=== PATIENT | male | born 1940 | race Caucasian/White ===

== ENCOUNTER → 2023-07-15 15:40 | Outpatient (REF) | payer MEDICARE, SELFPAY ==
[2023-07-15 16:15] LABS: % Basophils 0.5 % (0-2); % Eosinophils 0.8 % (0-6); % Immature Granulocytes 0.3 % (0-0.5); % Monocytes 5.1 % (1.7-9.3); % Neutrophils 44.3 % (42.2-75.2); Absolute Basophils 0.1 10^3/uL (0-0.2); Absolute Eosinophils 0.1 10^3/uL (0-0.7); Absolute Immature Granulocytes 0.1 10^3/uL (0-0.05); Absolute Lymphocytes 7.2 10^3/uL (1.2-3.4); Absolute Monocytes 0.8 10^3/uL (0.1-0.6); Absolute Neutrophils 6.5 10^3/uL (1.4-6.5); Hematocrit 37.1 % (39.0-52.0); Hemoglobin 12.8 g/dL (13.0-18.0); Mean Corp Hgb Conc. 34.5 g/dL (33.0-37.0); Mean Corpuscular Hgb 31.5 pg (27.0-31.0); Mean Corpuscular Volume 91.4 fL (80.0-94.0); Mean Platelet Volume 10.2 fL (7.4-10.4); Nucleated Red Blood Cells % 0 % (-); Platelet Count 233 10^3/uL (130-400); Red Blood Cell Count 4.06 10^6/uL (4.70-6.10); Red Cell Dist. Width 12.6 % (11.5-14.5); White Blood Cell Count 14.6 10^3/uL (4.8-10.8)
[2023-07-19 12:42] LABS: Albumin 4.09 g/dL (3.75-5.01); Alpha 1 Globulin 0.24 g/dL (0.19-0.46); Alpha 2 Globulin 0.67 g/dL (0.48-1.05); Free Kappa Light Chains,Quant 34.57 mg/L (3.30-19.40); Free Lambda Light Chains,Quant 15.57 mg/L (5.71-26.30); IgA 188 mg/dL (68-408); IgG 961 mg/dL (768-1632); IgM 38 mg/dL (35-263); Immunofixation Electrophoresis IFE Done; Kappa/Lambda Fr Light Ratio 2.22 (0.26-1.65); Total Protein-Electrophoresis 6.6 g/dL (6.3-8.2)
== END ==
LOC: REG 15:40
PROVIDERS: ATTENDING PHYSICIAN Internal Medicine Hematology & Oncology; FAMILY PHYSICIAN Internal Medicine
DX: C91.10 Chronic lymphocytic leukemia of B-cell type not having achieved remission (principal)
CPT/HCPCS: 36415; 82784; 83521; 84155; 84165; 85025; 86334

== ENCOUNTER → 2023-08-25 06:23 | Day surgery (SDC) | payer MEDICARE, SELFPAY ==
[2023-08-25 08:04] LABS: Glucose - Point of Care 105 mg/dl (70-99)
== END ==
LOC: GI 06:23
PROVIDERS: ATTENDING PHYSICIAN Internal Medicine Gastroenterology
DX: R13.10 Dysphagia, unspecified (principal); K44.9 Diaphragmatic hernia without obstruction or gangrene; Q39.9 Congenital malformation of esophagus, unspecified; K31.7 Polyp of stomach and duodenum; K31.89 Other diseases of stomach and duodenum; C85.99 Non-Hodgkin lymphoma, unspecified, extranodal and solid organ sites; K29.50 Unspecified chronic gastritis without bleeding; K20.80 Other esophagitis without bleeding
CPT/HCPCS: 43239; 88305; 82962; 88341; 88342

== ENCOUNTER → 2023-09-16 07:42 | Outpatient (REF) | payer MEDICARE, SELFPAY ==
[2023-09-16 08:49] LABS: % Basophils 0.5 % (0-2); % Eosinophils 0.9 % (0-6); % Immature Granulocytes 0.3 % (0-0.5); % Lymphocytes 53.5 % (20.5-51.1); % Monocytes 5.2 % (1.7-9.3); % Neutrophils 39.6 % (42.2-75.2); Absolute Basophils 0.1 10^3/uL (0-0.2); Absolute Eosinophils 0.1 10^3/uL (0-0.7); Absolute Monocytes 0.8 10^3/uL (0.1-0.6); Absolute Neutrophils 5.9 10^3/uL (1.4-6.5); Hematocrit 39.2 % (39.0-52.0); Hemoglobin 13.4 g/dL (13.0-18.0); Mean Corp Hgb Conc. 34.2 g/dL (33.0-37.0); Mean Corpuscular Hgb 30.9 pg (27.0-31.0); Mean Corpuscular Volume 90.5 fL (80.0-94.0); Mean Platelet Volume 10.4 fL (7.4-10.4); Nucleated Red Blood Cells % 0 % (-); Platelet Count 219 10^3/uL (130-400); Red Blood Cell Count 4.33 10^6/uL (4.70-6.10); Red Cell Dist. Width 12.5 % (11.5-14.5); White Blood Cell Count 14.9 10^3/uL (4.8-10.8)
[2023-09-16 09:31] LABS: ALT (SGPT) 21 U/L (0-50); AST (SGOT) 28 U/L (17-59); Albumin 4.3 g/dl (3.5-5.0); Alkaline Phosphatase 101 U/L (38-126); Blood Urea Nitrogen 20 mg/dl (9-20); Calcium 9.5 mg/dl (8.4-10.2); Carbon Dioxide 25 mmol/L (22-30); Chloride 99 mmol/L (98-107); Glucose 99 mg/dl (70-99); Potassium 3.7 mmol/L (3.5-5.1); Sodium 135 mmol/L (135-145); Total Bilirubin 0.6 mg/dl (0.2-1.3); Total Protein 6.7 g/dl (6.3-8.2); eGFR > 60.00
[2023-09-16 12:20] LABS: Glycohemoglobin (HgbA1c) 6.7 % (4.0-5.6)
== END ==
LOC: REG 07:42
PROVIDERS: ATTENDING PHYSICIAN Internal Medicine; OTHER PHYSICIAN Internal Medicine Gastroenterology; REFERRING PHYSICIAN Internal Medicine Hematology & Oncology
DX: I10 Essential (primary) hypertension (principal)
CPT/HCPCS: 36415; 80053; 83036; 85025

== ENCOUNTER → 2024-01-07 08:00 | Outpatient (REF) | payer MEDICARE, SELFPAY ==
[2024-01-07 09:31] LABS: Hematocrit 40.5 % (39.0-52.0); Hemoglobin 13.8 g/dL (13.0-18.0); Mean Corp Hgb Conc. 34.1 g/dL (33.0-37.0); Mean Corpuscular Hgb 31.6 pg (27.0-31.0); Mean Corpuscular Volume 92.7 fL (80.0-94.0); Mean Platelet Volume 10.2 fL (7.4-10.4); Platelet Count 218 10^3/uL (130-400); Red Blood Cell Count 4.37 10^6/uL (4.70-6.10); Red Cell Dist. Width 12.8 % (11.5-14.5); White Blood Cell Count 17.5 10^3/uL (4.8-10.8)
[2024-01-07 09:53] LABS: % Basophils 0.5 % (0-2); % Eosinophils 0.8 % (0-6); % Immature Granulocytes 0.3 % (0-0.5); % Lymphocytes 54.5 % (20.5-51.1); % Monocytes 3.5 % (1.7-9.3); % Neutrophils 40.4 % (42.2-75.2); Absolute Basophils 0.1 10^3/uL (0-0.2); Absolute Eosinophils 0.1 10^3/uL (0-0.7); Absolute Immature Granulocytes 0.1 10^3/uL (0-0.05); Absolute Lymphocytes 9.6 10^3/uL (1.2-3.4); Absolute Monocytes 0.6 10^3/uL (0.1-0.6); Absolute Neutrophils 7.1 10^3/uL (1.4-6.5); Nucleated Red Blood Cells % 0 % (-)
[2024-01-07 10:09] LABS: ALT (SGPT) 28 U/L (0-50); AST (SGOT) 32 U/L (17-59); Albumin 4.3 g/dl (3.5-5.0); Alkaline Phosphatase 105 U/L (38-126); Blood Urea Nitrogen 22 mg/dl (9-20); Calcium 9.4 mg/dl (8.4-10.2); Carbon Dioxide 29 mmol/L (22-30); Chloride 101 mmol/L (98-107); Glucose 97 mg/dl (70-99); HDL Cholesterol 36 mg/dl; LDL Cholesterol, Calculated 48 mg/dl; Potassium 3.9 mmol/L (3.5-5.1); Sodium 138 mmol/L (135-145); Total Bilirubin 0.8 mg/dl (0.2-1.3); Total Cholesterol 111 mg/dl (50-199); Total Protein 6.7 g/dl (6.3-8.2); Triglyceride 136 mg/dl (10-149); Very Low Density Lipoprotein 27 mg/dl (0-30); eGFR > 60.00
[2024-01-07 10:32] LABS: Glycohemoglobin (HgbA1c) 6.4 % (4.0-5.6)
[2024-01-07 11:47] LABS: Microalbumin, Random Urine 0.7 mg/dl (0.6-1.7)
== END ==
LOC: REG 08:00
PROVIDERS: ATTENDING PHYSICIAN Internal Medicine
DX: I10 Essential (primary) hypertension (principal); E11.9 Type 2 diabetes mellitus without complications
CPT/HCPCS: 36415; 80053; 80061; 82043; 83036; 85025

== ENCOUNTER → 2024-02-23 07:16 | Outpatient (REF) | payer MEDICARE, SELFPAY | LOC: DHCBC/DCA 07:16 | PROVIDERS: ATTENDING PHYSICIAN Internal Medicine Cardiovascular Disease; FAMILY PHYSICIAN Internal Medicine | DX: I35.0 Nonrheumatic aortic (valve) stenosis (principal) | CPT/HCPCS: 78452; 93017; A9500; J2785 ==

== ENCOUNTER → 2024-03-02 15:52 | Outpatient (REF) | payer MEDICARE, SELFPAY | LOC: RCS 15:52 | PROVIDERS: ATTENDING PHYSICIAN Internal Medicine Cardiovascular Disease; FAMILY PHYSICIAN Internal Medicine | DX: I35.0 Nonrheumatic aortic (valve) stenosis (principal) | CPT/HCPCS: 93306 ==

== ENCOUNTER → 2024-04-28 09:42 | Outpatient (REF) | payer MEDICARE, SELFPAY ==
[2024-04-28 12:18] LABS: % Basophils 0.6 % (0-2); % Eosinophils 1.2 % (0-6); % Immature Granulocytes 0.5 % (0-0.5); % Lymphocytes 46.5 % (20.5-51.1); % Monocytes 5.1 % (1.7-9.3); % Neutrophils 46.1 % (42.2-75.2); Absolute Basophils 0.1 10^3/uL (0-0.2); Absolute Eosinophils 0.2 10^3/uL (0-0.7); Absolute Immature Granulocytes 0.1 10^3/uL (0-0.05); Absolute Lymphocytes 6.5 10^3/uL (1.2-3.4); Absolute Monocytes 0.7 10^3/uL (0.1-0.6); Absolute Neutrophils 6.4 10^3/uL (1.4-6.5); Hematocrit 40.8 % (39.0-52.0); Hemoglobin 13.6 g/dL (13.0-18.0); Mean Corp Hgb Conc. 33.3 g/dL (33.0-37.0); Mean Corpuscular Hgb 31.6 pg (27.0-31.0); Mean Corpuscular Volume 94.9 fL (80.0-94.0); Mean Platelet Volume 10.8 fL (7.4-10.4); Nucleated Red Blood Cells % 0 % (-); Platelet Count 196 10^3/uL (130-400); Red Cell Dist. Width 12.9 % (11.5-14.5); White Blood Cell Count 13.9 10^3/uL (4.8-10.8)
[2024-04-28 12:40] LABS: ALT (SGPT) 25 U/L (0-50); AST (SGOT) 25 U/L (17-59); Albumin 3.9 g/dl (3.5-5.0); Alkaline Phosphatase 89 U/L (38-126); Blood Urea Nitrogen 26 mg/dl (9-20); Calcium 8.9 mg/dl (8.4-10.2); Carbon Dioxide 25 mmol/L (22-30); Chloride 107 mmol/L (98-107); Glucose 100 mg/dl (70-99); HDL Cholesterol 35 mg/dl; LDL Cholesterol, Calculated 48 mg/dl; Sodium 144 mmol/L (135-145); Total Bilirubin 0.3 mg/dl (0.2-1.3); Total Cholesterol 95 mg/dl (50-199); Total Protein 6.2 g/dl (6.3-8.2); Triglyceride 60 mg/dl (10-149); Very Low Density Lipoprotein 12 mg/dl (0-30); eGFR > 60.00
[2024-04-28 13:08] LABS: Glycohemoglobin (HgbA1c) 6.3 % (4.0-5.6)
== END ==
LOC: REG 09:42
PROVIDERS: ATTENDING PHYSICIAN Internal Medicine; FAMILY PHYSICIAN Internal Medicine Hematology & Oncology
DX: Z00.00 Encounter for general adult medical examination without abnormal findings (principal); I10 Essential (primary) hypertension; E11.9 Type 2 diabetes mellitus without complications
CPT/HCPCS: 36415; 80053; 80061; 83036; 85025

== ENCOUNTER → 2024-07-21 06:59 | Outpatient (REF) | payer MEDICARE, SELFPAY ==
[2024-07-21 07:51] LABS: Hematocrit 40.7 % (39.0-52.0); Hemoglobin 13.6 g/dL (13.0-18.0); Mean Corp Hgb Conc. 33.4 g/dL (33.0-37.0); Mean Corpuscular Hgb 30.1 pg (27.0-31.0); Mean Platelet Volume 10.5 fL (7.4-10.4); Platelet Count 202 10^3/uL (130-400); Red Blood Cell Count 4.52 10^6/uL (4.70-6.10); Red Cell Dist. Width 13.2 % (11.5-14.5); White Blood Cell Count 15.2 10^3/uL (4.8-10.8)
[2024-07-21 08:23] LABS: ALT (SGPT) 19 U/L (0-50); AST (SGOT) 23 U/L (17-59); Albumin 4.1 g/dl (3.5-5.0); Alkaline Phosphatase 105 U/L (38-126); Blood Urea Nitrogen 19 mg/dl (9-20); Calcium 8.9 mg/dl (8.4-10.2); Carbon Dioxide 25 mmol/L (22-30); Chloride 105 mmol/L (98-107); Glucose 100 mg/dl (70-99); HDL Cholesterol 38 mg/dl; LDL Cholesterol, Calculated 97 mg/dl; Potassium 3.7 mmol/L (3.5-5.1); Sodium 139 mmol/L (135-145); Total Bilirubin 0.9 mg/dl (0.2-1.3); Total Cholesterol 154 mg/dl (50-199); Total Protein 6.3 g/dl (6.3-8.2); Triglyceride 95 mg/dl (10-149); Very Low Density Lipoprotein 19 mg/dl (0-30); eGFR > 60.00
[2024-07-21 09:15] LABS: % Basophils 0.5 % (0-2); % Eosinophils 0.8 % (0-6); % Immature Granulocytes 0.3 % (0-0.5); % Lymphocytes 48.1 % (20.5-51.1); % Monocytes 4.5 % (1.7-9.3); % Neutrophils 45.8 % (42.2-75.2); Absolute Basophils 0.1 10^3/uL (0-0.2); Absolute Eosinophils 0.1 10^3/uL (0-0.7); Absolute Lymphocytes 7.3 10^3/uL (1.2-3.4); Absolute Monocytes 0.7 10^3/uL (0.1-0.6); Nucleated Red Blood Cells % 0 % (-)
[2024-07-21 09:30] LABS: Microalbumin, Random Urine 1.8 mg/dl (0.6-1.7); Microalbumin/creatinine Ratio 18.6 mg/g
[2024-07-21 09:31] LABS: Glycohemoglobin (HgbA1c) 6.3 % (4.0-5.6)
[2024-07-24 00:40] LABS: IgG 804 mg/dl (700-1600)
== END ==
LOC: REG 06:59
PROVIDERS: ATTENDING PHYSICIAN Internal Medicine Hematology & Oncology; FAMILY PHYSICIAN Internal Medicine; OTHER PHYSICIAN Internal Medicine Cardiovascular Disease
DX: I10 Essential (primary) hypertension (principal); E78.00 Pure hypercholesterolemia, unspecified; E11.9 Type 2 diabetes mellitus without complications; C91.10 Chronic lymphocytic leukemia of B-cell type not having achieved remission
CPT/HCPCS: 36415; 80053; 80061; 82043; 82570; 82784; 83036; 84155; 84165; 85025

== ENCOUNTER 2024-10-17 09:37 | Emergency (ER) | payer MEDICARE, SELFPAY ==
[2024-10-17 10:02] VITALS: BP 160/77
[2024-10-17 10:33] LABS: Hematocrit 42.4 % (39.0-52.0); Hemoglobin 14.4 g/dL (13.0-18.0); Mean Corpuscular Hgb 31.2 pg (27.0-31.0); Mean Corpuscular Volume 91.8 fL (80.0-94.0); Mean Platelet Volume 10.5 fL (7.4-10.4); Platelet Count 197 10^3/uL (130-400); Red Blood Cell Count 4.62 10^6/uL (4.70-6.10); Red Cell Dist. Width 13.1 % (11.5-14.5); White Blood Cell Count 15.1 10^3/uL (4.8-10.8)
[2024-10-17 10:43] LABS: ALT (SGPT) 21 U/L (0-50); AST (SGOT) 23 U/L (17-59); Albumin 4.4 g/dl (3.5-5.0); Alkaline Phosphatase 89 U/L (38-126); Blood Urea Nitrogen 20 mg/dl (9-20); Calcium 9.5 mg/dl (8.4-10.2); Carbon Dioxide 24 mmol/L (22-30); Chloride 110 mmol/L (98-107); Glucose 105 mg/dl (70-99); Potassium 4.1 mmol/L (3.5-5.1); Sodium 141 mmol/L (135-145); Total Bilirubin 0.7 mg/dl (0.2-1.3); Total Protein 6.8 g/dl (6.3-8.2); eGFR > 60.00
[2024-10-17 10:49] LABS: % Basophils 0.5 % (0-2); % Eosinophils 1.1 % (0-6); % Immature Granulocytes 0.3 % (0-0.5); % Lymphocytes 49.6 % (20.5-51.1); % Monocytes 4.6 % (1.7-9.3); % Neutrophils 43.9 % (42.2-75.2); Absolute Basophils 0.1 10^3/uL (0-0.2); Absolute Eosinophils 0.2 10^3/uL (0-0.7); Absolute Immature Granulocytes 0.1 10^3/uL (0-0.05); Absolute Lymphocytes 7.5 10^3/uL (1.2-3.4); Absolute Monocytes 0.7 10^3/uL (0.1-0.6); Absolute Neutrophils 6.6 10^3/uL (1.4-6.5); Nucleated Red Blood Cells % 0 % (-)
[2024-10-17 10:53] LABS: Troponin I < 0.012 ng/ml
[2024-10-17 13:06] VITALS: BP 175/96
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
[2024-10-17 14:05] VITALS: BP 177/99
[2024-10-17 14:07] VITALS: BMI 29.2
[2024-10-17 15:00] VITALS: BP 149/70
== END 2024-10-17 16:35 | disposition home or self-care (01) ==
LOC: EMR 09:37
PROVIDERS: Emergency Medicine; EMERGENCY PHYSICIAN Student in an Organized Health Care Education/Training Program; FAMILY PHYSICIAN Internal Medicine
DX: E78.00 Pure hypercholesterolemia, unspecified (principal); E11.9 Type 2 diabetes mellitus without complications; N40.0 Benign prostatic hyperplasia without lower urinary tract symptoms; I10 Essential (primary) hypertension; I49.3 Ventricular premature depolarization; K58.9 Irritable bowel syndrome, unspecified; C91.10 Chronic lymphocytic leukemia of B-cell type not having achieved remission; Z82.49 Family history of ischemic heart disease and other diseases of the circulatory system; Z90.49 Acquired absence of other specified parts of digestive tract; Z96.611 Presence of right artificial shoulder joint
CPT/HCPCS: 99284; 70450; 71046; 80053; 84484; 85025; 93005

== ENCOUNTER → 2024-10-30 14:57 | Outpatient (REF) | payer MEDICARE, SELFPAY | LOC: RCS 14:57 | PROVIDERS: ATTENDING PHYSICIAN Internal Medicine Cardiovascular Disease; FAMILY PHYSICIAN Internal Medicine | DX: I35.0 Nonrheumatic aortic (valve) stenosis (principal) | CPT/HCPCS: 93306 ==

== ENCOUNTER → 2024-11-28 07:59 | Outpatient (REF) | payer MEDICARE, SELFPAY ==
[2024-11-28 09:00] LABS: ALT (SGPT) 23 U/L (0-50); AST (SGOT) 23 U/L (17-59); Albumin 4.1 g/dl (3.5-5.0); Alkaline Phosphatase 103 U/L (38-126); Blood Urea Nitrogen 17 mg/dl (9-20); Calcium 8.8 mg/dl (8.4-10.2); Carbon Dioxide 22 mmol/L (22-30); Chloride 110 mmol/L (98-107); Glucose 96 mg/dl (70-99); HDL Cholesterol 34 mg/dl; LDL Cholesterol, Calculated 53 mg/dl; Potassium 4.0 mmol/L (3.5-5.1); Sodium 142 mmol/L (135-145); Total Protein 6.4 g/dl (6.3-8.2); Very Low Density Lipoprotein 15 mg/dl (0-30); eGFR > 60.00
[2024-11-28 10:19] LABS: Glycohemoglobin (HgbA1c) 6.4 % (4.0-5.6)
== END ==
LOC: REG 07:59
PROVIDERS: ATTENDING PHYSICIAN Internal Medicine
DX: E11.9 Type 2 diabetes mellitus without complications (principal); I10 Essential (primary) hypertension
CPT/HCPCS: 36415; 80053; 80061; 83036

== ENCOUNTER 2025-01-18 13:54 | Emergency (ER) | payer MEDICARE, SELFPAY ==
[2025-01-18] VITALS (8 sets, daily range): BP systolic 140–170; BP diastolic 73–98
[2025-01-18 14:05] LABS: Glucose - Point of Care 150 mg/dl (70-99)
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
[2025-01-18 15:06] LABS: Hematocrit 44.1 % (39.0-52.0); Hemoglobin 14.5 g/dL (13.0-18.0); Mean Corp Hgb Conc. 32.9 g/dL (33.0-37.0); Mean Corpuscular Volume 93.6 fL (80.0-94.0); Platelet Count 210 10^3/uL (130-400); Red Cell Dist. Width 12.6 % (11.5-14.5)
[2025-01-18 15:09] LABS: ALT (SGPT) 23 U/L (0-50); AST (SGOT) 23 U/L (17-59); Albumin 4.7 g/dl (3.5-5.0); Alkaline Phosphatase 109 U/L (38-126); Blood Urea Nitrogen 18 mg/dl (9-20); Calcium 9.7 mg/dl (8.4-10.2); Carbon Dioxide 24 mmol/L (22-30); Chloride 104 mmol/L (98-107); Glucose 141 mg/dl (70-99); Potassium 4.2 mmol/L (3.5-5.1); Sodium 138 mmol/L (135-145); Total Protein 7.3 g/dl (6.3-8.2); eGFR > 60.00
[2025-01-18 15:33] LABS: Nucleated Red Blood Cells % 0 % (-)
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
== END 2025-01-18 19:14 | disposition home or self-care (01) ==
LOC: EMR 13:54
PROVIDERS: EMERGENCY PHYSICIAN Emergency Medicine; PRIMARYCARE PHYSICIAN Internal Medicine
DX: R42 Dizziness and giddiness (principal); E04.1 Nontoxic single thyroid nodule; E11.40 Type 2 diabetes mellitus with diabetic neuropathy, unspecified; I10 Essential (primary) hypertension; E78.00 Pure hypercholesterolemia, unspecified; K21.9 Gastro-esophageal reflux disease without esophagitis; K44.9 Diaphragmatic hernia without obstruction or gangrene; N40.0 Benign prostatic hyperplasia without lower urinary tract symptoms; K58.9 Irritable bowel syndrome, unspecified; H91.91 Unspecified hearing loss, right ear; M48.02 Spinal stenosis, cervical region; Z87.820 Personal history of traumatic brain injury; Z85.72 Personal history of non-Hodgkin lymphomas; Z79.84 Long term (current) use of oral hypoglycemic drugs; Z96.611 Presence of right artificial shoulder joint; Z96.652 Presence of left artificial knee joint; Z82.3 Family history of stroke; Z82.49 Family history of ischemic heart disease and other diseases of the circulatory system
CPT/HCPCS: 99284; 70450; 70496; 70498; 70553; 80053; 82962; 85025; 93005; A9575; Q9967

== ENCOUNTER → 2025-02-20 08:35 | Outpatient (REF) | payer MEDICARE, SELFPAY ==
[2025-02-20 10:01] LABS: ALT (SGPT) 23 U/L (0-50); AST (SGOT) 24 U/L (17-59); Albumin 4.2 g/dl (3.5-5.0); Alkaline Phosphatase 99 U/L (38-126); Blood Urea Nitrogen 17 mg/dl (9-20); Calcium 9.4 mg/dl (8.4-10.2); Carbon Dioxide 25 mmol/L (22-30); Chloride 107 mmol/L (98-107); Glucose 101 mg/dl (70-99); HDL Cholesterol 38 mg/dl; LDL Cholesterol, Calculated 54 mg/dl; Potassium 4.0 mmol/L (3.5-5.1); Sodium 140 mmol/L (135-145); Total Protein 6.7 g/dl (6.3-8.2); Very Low Density Lipoprotein 18 mg/dl (0-30); eGFR > 60.00
[2025-02-20 10:13] LABS: Hematocrit 41.2 % (39.0-52.0); Hemoglobin 13.8 g/dL (13.0-18.0); Mean Corp Hgb Conc. 33.5 g/dL (33.0-37.0); Mean Corpuscular Volume 91.2 fL (80.0-94.0); Platelet Count 208 10^3/uL (130-400); Red Cell Dist. Width 12.8 % (11.5-14.5)
[2025-02-20 11:46] LABS: Glycohemoglobin (HgbA1c) 6.7 % (4.0-5.6)
[2025-02-20 11:50] LABS: Nucleated Red Blood Cells % 0 % (-)
== END ==
LOC: REG 08:35
PROVIDERS: ATTENDING PHYSICIAN Internal Medicine Hematology & Oncology; FAMILY PHYSICIAN Internal Medicine; REFERRING PHYSICIAN Internal Medicine Cardiovascular Disease
DX: I10 Essential (primary) hypertension (principal); E11.9 Type 2 diabetes mellitus without complications; E78.00 Pure hypercholesterolemia, unspecified
CPT/HCPCS: 36415; 80053; 80061; 83036; 84443; 85025

== ENCOUNTER 2025-02-23 07:09 | Day surgery (SDC) | payer MEDICARE, SELFPAY ==
[2025-02-23] VITALS (7 sets, daily range): BP systolic 142–167; BP diastolic 68–102; BMI 31.3
[2025-02-23 07:54] LABS: Glucose - Point of Care 88 mg/dl (70-99)
--- NOTE | 2025-02-23 10:21 | ITS.CL.CATH ---
[facility] - Catheterization
Cardiac Catheterization
Procedure Report:
RIGHT AND LEFT HEART STUDY
Date of Procedure: February 23, 2025
Referring: Dr. Jose E Myrick
PROCEDURES:
1. Right heart catheterization
2. Left heart catheterization with coronary and single-plane left ventriculography
INDICATION: This is a 84-year-old gentleman with known aortic stenosis and recent development of chest discomfort. Noninvasive studies suggest moderate to severe aortic stenosis
ACCESS: Right radial artery, 6 Swazi sheath in right brachial vein, 5 Swazi sheath using ultrasound-guided
HEMODYNAMICS : mmHg
RA (m) : 12
RV (s/d) : 37/8, 17
PA (s/d, m) : 39/16, 27
PCWP (m) : 22
AO (s/d, m) : 137/70, 96
LV (s/d) : 159/14
LVEDP : 25
Estimated Claudia Cardiac Output: 6.6 L / min and Cardiac Index: 3.3 L/ min / m-2
Systemic vascular resistance: 12.7 Wood units or 1018 [id number](-5)
Pulmonary vascular resistance: 0.76 Wood units or 60 emfpy-[id number]-dl(-5)
AORTIC VALVE:
Mean Gradient: 26 mmHg
Aortic Valve Area: 1.3 cm�
CORONARY FINDINGS :
Dominance: Right
LEFT MAIN: Normal
LEFT ANTERIOR DESCENDING: The LAD is a medium caliber vessel arising normally from the left main and running in the anterior interventricular groove. The LAD is widely patent. The distal LAD tapers to a very small caliber vessel that approaches
but does not wraparound the apex. Several small diagonal branches are noted to fill with only minor irregularities
RAMUS: Medium caliber vessel with minor irregularities
CIRCUMFLEX: The circumflex supplies a small OM1 and terminates in a small OM 2 and is widely patent
RIGHT CORONARY ARTERY: The right coronary artery is a large-caliber dominant vessel that is widely patent over its course. The PDA is large and the posterolateral branch is large and widely patent.
VENTRICULOGRAPHY: Left ventriculography is performed in an DUMONT projection. The digital single-plane left ventricular ejection fraction is estimated at 65% and no regional wall motion abnormalities are noted
CONCLUSIONS
1. Mildly elevated left ventricular filling pressures with moderate aortic stenosis and mean aortic valve gradient of 26 mmHg and aortic valve area 1.3 cm�.
2. Nonobstructive coronary disease
RECOMMENDATIONS
1. Continued medical management
Copy to: Dr. Jose E Myrick
== END 2025-02-23 13:02 | disposition home or self-care (01) ==
LOC: CATH 07:09
PROVIDERS: ATTENDING PHYSICIAN Internal Medicine Interventional Cardiology; FAMILY PHYSICIAN Internal Medicine; OTHER PHYSICIAN Internal Medicine Cardiovascular Disease
DX: R07.89 Other chest pain (principal); I35.0 Nonrheumatic aortic (valve) stenosis; I25.10 Atherosclerotic heart disease of native coronary artery without angina pectoris; E78.00 Pure hypercholesterolemia, unspecified; I10 Essential (primary) hypertension; C91.10 Chronic lymphocytic leukemia of B-cell type not having achieved remission; K21.9 Gastro-esophageal reflux disease without esophagitis; Z79.82 Long term (current) use of aspirin; Z79.899 Other long term (current) drug therapy
CPT/HCPCS: 82962; 93460; C1769; C1894; Q9967

== ENCOUNTER → 2025-03-07 15:39 | Outpatient (REF) | payer MEDICARE, SELFPAY | LOC: RCS 15:39 | PROVIDERS: ATTENDING PHYSICIAN Internal Medicine Cardiovascular Disease; FAMILY PHYSICIAN Internal Medicine | DX: I35.0 Nonrheumatic aortic (valve) stenosis (principal) | CPT/HCPCS: 93306 ==

== ENCOUNTER → 2025-03-16 12:18 | Outpatient (REF) | payer MEDICARE, SELFPAY | LOC: REG 12:18 | PROVIDERS: ATTENDING PHYSICIAN Internal Medicine Cardiovascular Disease; FAMILY PHYSICIAN Internal Medicine; REFERRING PHYSICIAN Internal Medicine Hematology & Oncology | DX: I35.0 Nonrheumatic aortic (valve) stenosis (principal) | CPT/HCPCS: 36415; 83880 ==

== ENCOUNTER → 2025-04-25 16:24 | Outpatient (REF) | payer MEDICARE, SELFPAY | LOC: RAD 16:24 | PROVIDERS: ATTENDING PHYSICIAN Internal Medicine Gastroenterology; FAMILY PHYSICIAN Internal Medicine | DX: K59.00 Constipation, unspecified (principal) | CPT/HCPCS: 74018 ==

== ENCOUNTER 2025-05-08 22:22 | Inpatient (IN) | payer MEDICARE, SELFPAY ==
[2025-05-08] VITALS (7 sets, daily range): BP systolic 142–158; BP diastolic 73–90; BMI 30.5; BMI 28.0
[2025-05-08 19:04] LABS: Hematocrit 33.3 % (39.0-52.0); Hemoglobin 11.2 g/dL (13.0-18.0); Mean Corp Hgb Conc. 33.6 g/dL (33.0-37.0); Mean Corpuscular Volume 90.2 fL (80.0-94.0); Platelet Count 327 10^3/uL (130-400); Red Cell Dist. Width 13.4 % (11.5-14.5)
[2025-05-08 19:15] LABS: ALT (SGPT) 106 U/L (0-50); AST (SGOT) 85 U/L (17-59); Albumin 3.7 g/dl (3.5-5.0); Alkaline Phosphatase 827 U/L (38-126); Blood Urea Nitrogen 13 mg/dl (9-20); Calcium 8.9 mg/dl (8.4-10.2); Carbon Dioxide 22 mmol/L (22-30); Chloride 102 mmol/L (98-107); Estimated Creatinine Clearance 82 ml/min; Glucose 243 mg/dl (70-99); Lipase 313 U/L (23-300); Potassium 4.2 mmol/L (3.5-5.1); Sodium 134 mmol/L (135-145); Total Protein 6.9 g/dl (6.3-8.2); eGFR > 60.00
[2025-05-08 19:17] LABS: Troponin I < 0.012 ng/ml
[2025-05-08 19:18] LABS: Nucleated Red Blood Cells % 0 % (-)
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
[2025-05-08] MEDS: ZOFRAN 4 MG IV (20:12)
[2025-05-08 20:40] LABS: COVID-19 Antigen Negative (Negative)
--- NOTE | 2025-05-08 21:24 | HPS.HSE ---
Family Physician
-
Family Physician: Tevin De Dios
Chief Complaint
-
Nausea and Vomiting
History of Present Illness
Patient is an 84 y/o male past medical history CAD, HTN, DM, CLL who presents with persistent nausea and vomiting. Patient report he ahs not been doing well since March. He reports nausea and vomiting associated with weakness and a 12lb weight
loss. Patient is now complaining of increasing left sided abdominal pain. He reports he has not been able to keep food down the last few days. He denies fevers, sweats or chills.
Medical History
Past Medical History
Past Medical History: Reports Other
Additional Past Medical History:
Nonobstructive Coronary Artery Disease
Severe Aortic Stenosis
Hypertension
Dyslipidemia
DM-II
CLL
GERD
Constipation-Predominant IBS
BPH
Obesity
Hearing Loss
Past Surgical History: Reports Other
Additional Past Surgical History:
Cholecystectomy
Herniorrhaphy x 4
Right TKA
Right Total Shoulder Replacement
Social History
Tobacco: Non-smoker
Alcohol: Occasional
Drug: None
Personal:
Living: With Family
Family History
Family History: Other (Mother: Pancreatic Cancer Father: CVA Son: Hodgkin's Lymphoma)
Allergies / Home Medications
Allergies reflects when Allergies were last updated in [employer].
Home Medications with original date entered in [employer]
Allergy/Medication List:
Allergies
Allergy/AdvReac Type Severity Reaction Status Date / Time
clams Allergy Nausea / Verified 01/18/25 14:40
Vomiting/Diarrhea
promethazine HCl (From Allergy Anaphylaxis Verified 01/18/25 14:40
Phenergan) (swelling
throat)
ramipril Allergy COUGH Verified 01/18/25 14:40
Home Medications
finasteride 5 mg tablet 5 mg PO DAILY Urinary issue 08/05/12
atorvastatin 20 mg tablet 20 mg PO QPM High cholesterol 08/17/16
pantoprazole 20 mg tablet,delayed release 20 mg PO DAILY Gastrointestinal issue 08/17/16
trazodone 50 mg tablet 50 mg PO HS Mental Health/Anxiety 09/09/18
metformin 500 mg tablet 500 mg PO BID Diabetes 03/22/19
famotidine 20 mg tablet 20 mg PO DAILYPRN PRN GERD 06/27/21
irbesartan 150 mg tablet 150 mg PO BID 01/18/25
loratadine 10 mg tablet (Claritin) 10 mg PO DAILYPRN PRN alleriges 01/18/25
metoprolol succinate 25 mg tablet,extended release 24 hr (Toprol XL) 12.5 mg PO QPM 01/18/25
therapeutic multivitamin 1 tab PO DAILY 01/18/25
Lactobacillus rhamnosus GG 10 billion cell capsule (Culturelle) 1 cap PO DAILY 02/23/25
amlodipine 2.5 mg tablet 2.5 mg PO DAILY 02/23/25
aspirin 81 mg chewable tablet (Aspirin Childrens) 81 mg PO DAILY 02/23/25
dextromethorphan HBr 15 mg tablet 15 mg PO Q6H PRN cough 02/23/25
naproxen sodium 220 mg capsule (Aleve) 440 mg PO BID PRN pain 02/23/25
ondansetron 4 mg disintegrating tablet 4 mg PO Q6HPRN PRN nausea/vomiting 02/23/25
polyethylene glycol 3350 17 gram oral powder packet (Miralax) 17 g PO DAILY 02/23/25
famotidine-Ca carb-mag hydrox 10 mg-800 mg-165 mg chewable tablet (Pepcid Complete) 1 tab PO HS 05/08/25
meloxicam 15 mg tablet 15 mg PO DAILY PRN leg swelling 05/08/25
Review of Systems
-
History Source: Patient
A 12 point ROS was completed and negative except as noted: Yes
Constitutional: Denies Fever or Chills
Respiratory: Denies Cough or Trouble Breathing
Cardiac: Denies Chest Pain or Palpitations
Physical Exam
Vital Signs
Vital Signs
Temp Pulse Resp BP Pulse Ox
97.6 F 75 28 142/73 99
05/08/25 18:33 05/08/25 19:45 05/08/25 19:45 05/08/25 19:00 05/08/25 19:58
Physical Exam
General: No Apparent Distress, Comfortable and Conversant
HEENT: NormoCephalic, Anicteric, Atraumatic and Other (Slightly dry mucous membranes)
Respiratory: Clear and Non Labored Respirations; No Wheezes, Rales or Rhonchi
Cardiac: S1/S2, Regular Rhythm and Murmur (III/ Systolic Murmur)
GI: Soft and Tender (Epigastric and LUQ Quadrant)
Rectal: Deferred by Provider
Musculoskeletal: No Clubbing, No Cyanosis and No Edema
Skin: Warm and Dry; No Rash
Neuro: Awake, Alert, Oriented and Nonfocal/grossly intact
Psych: Calm
Laboratory Results
-
05/08/25 18:48
05/08/25 18:48
Laboratory Results
Lactic Acid 3.0 mmol/L (0.7-2.0) H 05/08/25 19:47
Total Bilirubin 1.4 mg/dl (0.2-1.3) H 05/08/25 18:48
AST 85 U/L (17-59) H 05/08/25 18:48
ALT 106 U/L (0-50) H 05/08/25 18:48
Alkaline Phosphatase 827 U/L (38-126) H 05/08/25 18:48
Troponin I < 0.012 ng/ml 05/08/25 18:48
Lipase 313 U/L (23-300) H 05/08/25 18:48
Abd/Pelvis CT Scan:
Status post cholecystectomy. Diffuse intrahepatic bile duct dilation with dilation of the common hepatic duct at the junction with the common bile duct. Abrupt change in caliber with evidence for a mass in the pancreatic head. This most likely
represents pancreatic carcinoma. Less likely differential consideration of a duodenal neoplasm extending into the pancreatic head.
The mass appears to involve the second portion of the duodenum as well, and likely results in obstruction of the duodenum, with dilation of the stomach in the visualized distal esophagus.
Evidence for neoplastic lymphadenopathy as described.
2 small low-density hepatic lesions appear stable from examination of February 02, 2022, with no convincing evidence for hepatic metastatic disease.
Data Reviewed
-
CT Scan: Report Reviewed by me
Lab Data: Labs Reviewed by me
Impression/Plan
-
Pancreatic Mass (new diagnosis)
-Consult GI and Oncology
-Check CA 19-9
-Check Abd MRI/MRCP
-Continue NPO/IVFs
-Consider NGT placement if patient developed persistent vomiting as mass appears to cause component of obstruction at the level of the duodenum
Nonobstructive Coronary Artery Disease
-Continue aspirin
Severe Aortic Stenosis
-Monitor Daily Weights
Hypertension
-Continue amlodipine and irbesartan
Dyslipidemia
-Hold atorvastatin
DM-II
-Hold metformin
-Monitor sugars and continue coverage insulin
CLL
-WBC count stabe
GERD
-Continue Protonix IV
BPH
-Continue finasteride
DVT proph: Lovenox
Code Status: Full Code
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
[2025-05-08] MEDS: NSS 1000 IV (22:57)
[2025-05-08] MEDS: DESYREL 50 MG PO (23:20)
[2025-05-09] MEDS: NOVOLOG FLEXPEN-HIGH RESISTANCE 1 UNITS SC (05:48)
[2025-05-09 06:00] VITALS: BMI 27.9
[2025-05-09 06:24] LABS: Glucose - Point of Care 172 mg/dl (70-99)
[2025-05-09 06:24] LABS: Glucose - Point of Care 147 mg/dl (70-99)
--- NOTE | 2025-05-09 06:54 | CON.GI ---
Addendum entered and electronically signed by Bogdan Plascencia MD 05/09/25 09:33:
Patient seen and examined, agree with nurse practitioner note. The patient is an 84-year-old male with past medical history as noted presents with increasing early satiety, weight loss and nausea. Yesterday he had large episode of emesis with
dizziness. Upon presentation the emergency room he had a CT scan that showed mass in the head of the pancreas extending to the duodenum with at least partial obstruction. His CBD was mildly dilated, and there was some regional lymphadenopathy as
well. He has been having symptoms of early satiety and increasing heartburn symptoms over the past 4 weeks, though prior to this states that he was feeling well with really no symptoms. 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
been quiescent, with normal endoscopic appearance last year, though. On exam he has some mild epigastric tenderness was present on biopsies, though no rebound. He denies any chest pain or shortness of breath
1. Pancreatic mass: Unclear if originating from the pancreas or duodenum, concerning for pancreatic adenocarcinoma, with partial obstruction. It is possible, however, that could still be consistent with lymphoma given his history and his somewhat
acute symptoms. At this point we will await MRI as ordered, and we will plan EGD with EUS/FNA, possible ERCP.
Original Note:
Consultation
-
Date/Time Consultation Requested: 05/08/25 2230
Date/Time Consultation Performed: 05/09/25 0700
Requesting Provider: Marlena Dash PA-C
Performing Provider: SONIA Garay, Gilmer Plascencia MD
Reason for Consultation: abnormal imaging
Medical History
Chief Complaint / HPI
Chief Complaint: nausea/vomiting
History of Present Illness:
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 Westbrook, ? squamous cell CA of leg, HTN,
hyperlipidemia, martin's esophagus, Schatzki's ring, HH, IBS constipation, BPH, obesity, hearing loss, multiple joint surgeries, prior appe, brendan, insomnia, ED, diverticulosis with onset of nausea and vomiting. Pt was seen in GI office March
with increased GERD and optimization of regiment to Protonix 40mg BID and Famotidine 20mg BID along with adding Miralax daily with constipation and prior imaging with moderate stool burden.
In review further with patient he admits to no feeling well for about 4 weeks. Initial GERD and constipation then diarrhea after laxatives but also decreased appetite and 13 lbs wt loss. He also admits to persistent cough possible GERD related
but also admits to recent work up with cardiology for severe . He admits to eating lunch yesterday around 1:30PM but continued with dizziness and actually had a formed stool. He then vomited large amount around 4pm prompting ER eval. He also
complaints of persistent LLQ pain and some bloating. Pt otherwise denies odynophagia, dysphagia, hematemesis, blood or black in stools. On admission noted with WBC 18,900, hbg 11.2, Na 134, glucose 234, lactate 3, bili 1.4, AST 85, ALT 106, alk
phos [address] with Iv contrast s/p brendan diffuse intrahepatic bile duct dilatation with dilation of common hepatic duct at junction of CBD with abrupt change in caliber with mass in pancreatic head with concern for pancreatic
carcinoma with involvement of second portion of duodenum with obstruction of duodenum with dilation of stomach, dilation of fluid filled distal esophagus and fluid filled HH. There is also mild rotation within SMV to superior aspect of SMA no
encasement of SMA or SMV and noted prominent lymph nodes. liver lesion likely cyst and liver hemagioma. Mild rotation of colon left side abdomen. Pt on daily ASA no other NSAIDs or anticoagulation.+ family hx mother with pancreatic CA.
Past Medical History
Past Medical History: CAD (non obstructive CAD), Cancer (CLL and non hodgkin's lymphoma of small bowel, ?squamous cell CA leg), GERD, HTN, Hypercholesterolemia, NIDDM, Valvular Disease (severe ) and Other (CLL and non hodgkin's lymphoma of small
bowel , martin's esophagus, Schatzki's ring, HH, IBS constipation, BPH, obesity, hearing loss, insomnia, ED, diverticulosis, )
Past Surgical History: Appendectomy, Cholecystectomy, Orthopedic (carpel tunnel surgery, shoulder surgery, TKR R and left ) and Other (septoplasty, vasectomy, umbilical hernia repair, cataract surgery )
Social History
Tobacco: Non-Smoker
Alcohol: Occasional (minimal )
Drug: None
Personal:
Living: With Family
Employment: Employed
Family History
Family History: Other (mother with pancreatic cancer in 50's)
Allergies / Home Medications
Allergy/AdvReac Type Severity Reaction Status Date / Time
clams Allergy Nausea / Verified 01/18/25 14:40
Vomiting/Diarrhea
promethazine HCl (From Allergy Anaphylaxis Verified 01/18/25 14:40
Phenergan) (swelling
throat)
ramipril Allergy COUGH Verified 01/18/25 14:40
�Medication �Instructions �Recorded
finasteride 5 mg tablet 5 mg PO DAILY Urinary issue 08/05/12
atorvastatin 20 mg tablet 20 mg PO QPM High cholesterol 08/17/16
pantoprazole 20 mg tablet,delayed 40 mg PO BID Gastrointestinal issue 08/17/16
release
trazodone 50 mg tablet 50 mg PO HS Mental Health/Anxiety 09/09/18
metformin 500 mg tablet 500 mg PO BID Diabetes 03/22/19
famotidine 20 mg tablet 20 mg PO DAILYPRN GERD 06/27/21
irbesartan 150 mg tablet 150 mg PO BID 01/18/25
loratadine 10 mg tablet (Claritin) 10 mg PO DAILYPRN PRN alleriges 01/18/25
metoprolol succinate 25 mg 12.5 mg PO QPM 01/18/25
tablet,extended release 24 hr
(Toprol XL)
therapeutic multivitamin 1 tab PO DAILY 01/18/25
Lactobacillus rhamnosus GG 10 1 cap PO DAILY 02/23/25
billion cell capsule (Culturelle)
amlodipine 2.5 mg tablet 2.5 mg PO DAILY 02/23/25
aspirin 81 mg chewable tablet 81 mg PO DAILY 02/23/25
(Aspirin Childrens)
dextromethorphan HBr 15 mg tablet 15 mg PO Q6H PRN cough 02/23/25
naproxen sodium 220 mg capsule 440 mg PO BID PRN pain 02/23/25
(Aleve)
ondansetron 4 mg disintegrating 4 mg PO Q6HPRN PRN nausea/vomiting 02/23/25
tablet
polyethylene glycol 3350 17 gram 17 g PO DAILY 02/23/25
oral powder packet (Miralax)
famotidine-Ca carb-mag hydrox 10 1 tab PO HS 05/08/25
mg-800 mg-165 mg chewable tablet
(Pepcid Complete)
meloxicam 15 mg tablet 15 mg PO DAILY PRN leg swelling 05/08/25
Review of Systems
-
History Source: Patient
Constitutional: Reports Weight Loss, Fatigue, Night Sweats and Chills
EENT: Reports No Symptoms
Respiratory: Reports Cough (persistent for a few weeks ) and Trouble Breathing (short of breath with steps )
Cardiac: Reports No Symptoms
Abdomen/GI: Reports Abdominal Pain (LLQ )
: Reports Dark Urine (with eating less last few weeks )
Musculoskeletal: Reports No Symptoms
Skin: Reports No Symptoms
Neurological: Reports Dizzy and Weakness
Endocrine: Reports No Symptoms
Hematologic/Lymphatic: Reports No Symptoms
Vital Signs
Temp Pulse Resp BP Pulse Ox
98.1 F 73 18 158/81 99
05/08/25 22:31 05/08/25 22:31 05/08/25 22:31 05/08/25 22:31 05/08/25 22:31
Physical Exam
Exam
General: Well Developed, Well Nourished and No Apparent Distress
HEENT: Other (slight jaundice )
Respiratory: Other (decreased bases )
Cardiac: Regular Rhythm and Murmur
GI: Soft, Tender (LLQ) and Distended
Musculoskeletal: No Clubbing and No Cyanosis
Skin: Warm and Dry
Neuro: Awake, Alert and AO x 3
Psych: Calm
Results
WBC 18.9 10^3/uL (4.8-10.8) H 05/08/25 18:48
Hgb 11.2 g/dL (13.0-18.0) L 05/08/25 18:48
Hct 33.3 % (39.0-52.0) L 05/08/25 18:48
MCV 90.2 fL (80.0-94.0) 05/08/25 18:48
Plt Count 327 10^3/uL (130-400) 05/08/25 18:48
Absolute Neuts (auto) 11.8 10^3/uL (1.4-6.5) H 05/08/25 18:48
Sodium 134 mmol/L (135-145) L 05/08/25 18:48
Potassium 4.2 mmol/L (3.5-5.1) 05/08/25 18:48
Chloride 102 mmol/L (98-107) 05/08/25 18:48
Carbon Dioxide 22 mmol/L (22-30) 05/08/25 18:48
BUN 13 mg/dl (9-20) 05/08/25 18:48
Creatinine 0.7 mg/dL (0.7-1.3) 05/08/25 18:48
Calcium 8.9 mg/dl (8.4-10.2) 05/08/25 18:48
Total Bilirubin 1.4 mg/dl (0.2-1.3) H 05/08/25 18:48
AST 85 U/L (17-59) H 05/08/25 18:48
ALT 106 U/L (0-50) H 05/08/25 18:48
Alkaline Phosphatase 827 U/L (38-126) H 05/08/25 18:48
Lipase 313 U/L (23-300) H 05/08/25 18:48
Diagnostic Image Results:
05/08/25- CT a/p with IV contrast-
IMPRESSION: Status post cholecystectomy. Diffuse intrahepatic bile duct dilation with dilation of the common hepatic duct at the junction with the common bile duct. Abrupt change in caliber with evidence for a mass in the pancreatic head. This most
likely represents pancreatic carcinoma. Less likely differential consideration of a duodenal neoplasm extending into the pancreatic head.
The mass appears to involve the second portion of the duodenum as well, and likely results in obstruction of the duodenum, with dilation of the stomach in the visualized distal esophagus.
Evidence for neoplastic lymphadenopathy as described.
2 small low-density hepatic lesions appear stable from examination of February 02, 2022, with no convincing evidence for hepatic metastatic disease.
Findings of malrotation, stable.
04/26/25- abd X ray- large volume colonic stool burden
11/2019- capsule endoscopy - normal no bleeding site seen large duodenal diverticulum
03/2022- virtual colonoscopy no polyps seen
07/2023- EGD Do - Tortuous esophagus. Biopsied.- Z-line regular, 40 cm from the incisors. - Erythematous mucosa in the antrum - 5 cm hiatal hernia - Multiple gastric polyps. Biopsied. - Normal examined duodenum. Biopsied - Gastric mapping performed
with four biopsies were obtained in the gastric fundus, in the gastric body, on the greater curvature of the stomach, on the lesser curvature of the stomach, at the incisura and in the gastric antrum. Cytology also sent. bx
03/07/25 Echo
1. Left ventricular ejection fraction is normal with an ejection fraction of 69 % by Power's biplane method of discs.
2. Compared to a prior transthoracic echocardiogram study from October 2024 no significant changes are seen.
3. Thickened calcified trileaflet aortic valve with decreased leaflet excursion. Severe aortic stenosis but mean pressure gradient of 38 mmHg and aortic valve area of 0.93 cm² using LVOT diameter of 2.1 cm. Trace aortic insufficiency.
4. Mild concentric left ventricular hypertrophy.
5. Mild tricuspid regurgitation. Estimated pulmonary artery pressure of 36 mmHg assuming a right atrial pressure of 3 mmHg.
Assessment / Plan
-
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 Westbrook, ? squamous cell CA of leg, HTN,
hyperlipidemia, martin's esophagus, Schatzki's ring, HH, IBS constipation, BPH, obesity, hearing loss, multiple joint surgeries, prior appe, brendan, insomnia, ED, diverticulosis with onset of nausea and vomiting. Pt was seen in GI office March
with increased GERD and optimization of regiment to Protonix 40mg BID and Famotidine 20mg BID along with adding Miralax daily with constipation. In review further with patient he admits to no feeling well for about 4 weeks. Initial GERD and
constipation then diarrhea after laxatives but also decreased appetite and 13 lbs wt loss. He also admits to persistent cough possible GERD related but also admits to recent work up with cardiology for severe . He admits to eating lunch 05/08
around 1:30PM but continued with dizziness and actually had a formed stool. He then vomited large amount around 4pm prompting ER eval. He also complaints of persistent LLQ pain and some bloating. Pt otherwise denies odynophagia, dysphagia,
hematemesis, blood or black in stools. On admission noted with WBC 18,900, hbg 11.2, Na 134, glucose 234, lactate 3, bili 1.4, AST 85, ALT 106, alk phos 827 and lipase 313. Pt on daily ASA no other NSAIDs or anticoagulation.+ family hx mother
with pancreatic CA.
05/08/25 CT with Iv contrast s/p brendan diffuse intrahepatic bile duct dilatation with dilation of common hepatic duct at junction of CBD with abrupt change in caliber with mass in pancreatic head with concern for pancreatic carcinoma with involvement
of second portion of duodenum with obstruction of duodenum with dilation of stomach, dilation of fluid filled distal esophagus and fluid filled HH. There is also mild rotation within SMV to superior aspect of SMA no encasement of SMA or SMV and
noted prominent lymph nodes. liver lesion likely cyst and liver hemagioma. Mild rotation of colon left side abdomen. Pt on daily ASA no other NSAIDs or anticoagulation.+ family hx mother with pancreatic CA.
-CT concern for biliary duct dilatation with pancreatic mass with involvement of duodenum with obstruction and dilatation of stomach and distal esophagus
-increased LFT's and lipase
-4 weeks of increased GERD, constipation then diarrhea, wt loss, nausea/vomiting
-persistent cough
-hx severe with current work up with cardiology and noted murmur on exam
-LLQ pain with mild distention on exam
-hx CLL and non hodgkin's lymphoma of small bowel with skilled nursing follow with Dr. Westbrook
-leukocytosis
-anemia
-hyponatremia
other med problems:
non obstructive CAD, severe with current work up, NIDDM, ? squamous cell CA of leg, HTN, hyperlipidemia, martin's esophagus, Schatzki's ring, HH, IBS constipation, BPH, obesity, hearing loss, multiple joint surgeries, prior appe, brendan,
insomnia, ED, diverticulosis
PLAN:
etiology of symptoms with concern for pancreatic mass with duodenal involvement and possible obstructive process
plan for MRI next
will review with Dr. Plascencia and Dr. Phan
if EUS/ERCP needed may need NGT decompression prior
NPO
for Dr. Unger consult
I reviewed with Dr. Muse for medical optimization with cough and current cardiac work up for severe
I reviewed with nursing to call for any further vomiting
NPO
IVF
cont PPI daily
CEA and CA 19-9 pending
-
-
Thank you for consultation and allowing me to participate in the patient's care. Please call the compensation director GI physician during the after hours with any questions or concerns.
--- NOTE | 2025-05-09 07:05 | CON.ONC ---
Addendum entered and electronically signed by Gregg Monteiro MD 05/09/25 07:21:
Clarification:
GI has been already been consulted and will be needed for the diagnostic workup.
Dr. Wali Unger was consulted from a surgical perspective to help coordinate eventual surgical treatment assuming patient is surgical candidate.
Original Note:
Consultation
-
Date Consultation Requested: 05/09/25
Date Consultation Performed: 05/09/25
Requesting Provider: Angélica
Performing Provider: Thania
Reason for Consultation: Pancreatic mass, history of CLL
Impression
Impression
Suspect primary pancreatic (vs. duodenal malignancy) with regional neoplastic lymphadenopathy but no evidence of metastatic disease
History of CLL
Plan
Plan
Patient appears to have potentially a new primary pancreatic or less likely duodenal malignancy in the context of relatively indolent stable CLL which has not required therapy other than active surveillance.
Mass appears to be not only affecting the pancreas but also invading the duodenum causing duodenal obstruction.
CA 19-9 has been ordered and is pending.
At this point the most useful next step would be to proceed with an endoscopic ultrasound with biopsy potentially as well as additional imaging to assess resectability.
Will consult Dr. Wali Unger to follow along with us while we work this patient up including to help coordinate best imaging including whether next imaging test should be MRI or CT angiogram.
Following with you but right now await diagnostic workup typically done by GI.
Patient History
History of Present Illness
Family Physician: Tevin De Dios
Primary oncologist: Dr. Alonso Westbrook
CC: Nausea and Vomiting
HPI: 84 y/o man with history of indolent CLL originally diagnosed in 2016 currently not requiring active therapy just active surveillance presents with a 4-week history since mid March of reflux, constipation, left-sided abdominal pain, nausea
and vomiting associated with 12 pound weight loss prompting ER visit. CT scan suggestive of primary pancreatic cancer. With evidence of duodenal obstruction. See below for full report. Patient is being admitted for further evaluation. GI and
oncology have both been consulted.
Past-Medical/Surgical History
PMH:
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
Nonobstructive Coronary Artery Disease
Severe Aortic Stenosis
Hypertension
Dyslipidemia
DM-II
CLL
GERD
Constipation-Predominant IBS
BPH
Obesity
Hearing Loss
PSH:
Cholecystectomy
Herniorrhaphy x 4
Right TKA
Right Total Shoulder Replacement
SH:
Tobacco: Non-smoker
Alcohol: Occasional
Drug: None
Personal:
Living: With Family
FH:Mother: Pancreatic Cancer Father: CVA Son: Hodgkin's Lymphoma
Patient Medication
�Medication �Instructions �Recorded �Confirmed �Last Taken �Type
finasteride 5 mg tablet 5 mg PO DAILY Urinary issue 08/05/12 05/08/25 02/22/25 History
atorvastatin 20 mg tablet 20 mg PO QPM High cholesterol 08/17/16 05/08/25 02/22/25 History
pantoprazole 20 mg tablet,delayed 40 mg PO BID Gastrointestinal issue 08/17/16 05/09/25 02/22/25 History
release
trazodone 50 mg tablet 50 mg PO HS Mental Health/Anxiety 09/09/18 05/08/25 02/22/25 History
metformin 500 mg tablet 500 mg PO BID Diabetes 03/22/19 05/08/25 02/22/25 History
famotidine 20 mg tablet 20 mg PO DAILYPRN GERD 06/27/21 05/08/25 02/22/25 History
irbesartan 150 mg tablet 150 mg PO BID 01/18/25 05/08/25 02/22/25 History
loratadine 10 mg tablet (Claritin) 10 mg PO DAILYPRN PRN alleriges 01/18/25 05/08/25 02/22/25 History
metoprolol succinate 25 mg 12.5 mg PO QPM 01/18/25 05/08/25 02/22/25 History
tablet,extended release 24 hr
(Toprol XL)
therapeutic multivitamin 1 tab PO DAILY 01/18/25 05/08/25 02/22/25 History
Lactobacillus rhamnosus GG 10 1 cap PO DAILY 02/23/25 05/08/25 Unknown History
billion cell capsule (Culturelle)
amlodipine 2.5 mg tablet 2.5 mg PO DAILY 02/23/25 05/08/25 02/22/25 History
aspirin 81 mg chewable tablet 81 mg PO DAILY 02/23/25 05/08/25 02/23/25 History
(Aspirin Childrens)
dextromethorphan HBr 15 mg tablet 15 mg PO Q6H PRN cough 02/23/25 05/08/25 Unknown History
naproxen sodium 220 mg capsule 440 mg PO BID PRN pain 02/23/25 05/08/25 Unknown History
(Aleve)
ondansetron 4 mg disintegrating 4 mg PO Q6HPRN PRN nausea/vomiting 02/23/25 05/08/25 Unknown History
tablet
polyethylene glycol 3350 17 gram 17 g PO DAILY 02/23/25 05/08/25 02/22/25 History
oral powder packet (Miralax)
famotidine-Ca carb-mag hydrox 10 1 tab PO HS 05/08/25 05/08/25 Unknown History
mg-800 mg-165 mg chewable tablet
(Pepcid Complete)
meloxicam 15 mg tablet 15 mg PO DAILY PRN leg swelling 05/08/25 05/08/25 Unknown History
Active Medications
Generic Name Dose Route Start Last Admin
Trade Name Freq PRN Reason Stop Dose Admin
Acetaminophen 650 mg 05/08/25 22:32
Acetaminophen 325 Mg Tablet PO 06/05/25 22:31
Q4HPRN PRN
mild pain/ fever>100.5F
Amlodipine Besylate 2.5 mg 05/09/25 08:00
Amlodipine 2.5 Mg Tablet PO 06/06/25 07:59
DAILY CARLOS
Aspirin 81 mg 05/09/25 08:00
Aspirin 81 Mg Chewable Tablet PO 06/06/25 07:59
DAILY CARLOS
Dextrose 12.5 grams 05/08/25 22:32
Dextrose 50% (0.5 Grams/Ml) 50 Ml Syringe IV 06/05/25 22:31
[id number] PRN
hypoglycemia
Protocol
Enoxaparin Sodium 40 mg 05/09/25 18:00
Enoxaparin Sodium 40 Mg/0.4 Ml Syringe SC 06/06/25 17:59
QPM CARLOS
Finasteride 5 mg 05/09/25 08:00
Finasteride 5 Mg Tablet PO 06/06/25 07:59
DAILY CARLOS
Glucagon 1 mg 05/08/25 22:32
Glucagon 1 Mg Vial IM 06/05/25 22:31
PRN PRN
hypoglycemia
Protocol
Sodium Chloride 1,000 mls @ 80 mls/hr 05/08/25 22:32 05/08/25 22:57
Nss IV 1,000 mls
.[id number] CARLOS Administration
Insulin Aspart 0 units 05/09/25 06:00 05/09/25 05:48
Insulin Aspart High Resistance 300 Units/3 Ml Pen.Injctr SC 06/06/25 05:59 1 units
Q6 CARLOS Administration
Protocol
Irbesartan 150 mg 05/09/25 08:00
Irbesartan 150 Mg Tablet PO 06/06/25 07:59
BID CARLOS
Metoprolol Succinate 12.5 mg 05/09/25 18:00
Metoprolol 12.5 Mg Extended Release Dose (1/2 Of 25 Mg Xl Tablet) PO 06/06/25 17:59
QPM CARLOS
Ondansetron HCl 4 mg 05/08/25 22:32
Ondansetron 4 Mg/2 Ml Vial IV 06/05/25 22:31
Q6HPRN PRN
NAUSEA/VOMITING
Pantoprazole Sodium 40 mg 05/09/25 08:00
Pantoprazole Sodium 40 Mg/10 Ml Vial IV 06/06/25 07:59
DAILY CARLOS
Sodium Chloride 0 flush 05/08/25 23:00
Sodium Chloride 0.9% (Flush) Syringe IV 06/05/25 22:59
PER PROTOCOL CARLOS
Sodium Chloride 10 ml 05/09/25 08:00
Sodium Chloride 0.9% (Preservative Free) 10 Ml Vial IV 06/06/25 07:59
DAILY CARLOS
Trazodone HCl 50 mg 05/08/25 22:32 05/08/25 23:20
Trazodone 50 Mg Tablet PO 06/05/25 22:31 50 mg
HS CARLOS Administration
Physical Exam
-
General: Well Developed, Well Nourished and No Apparent Distress
HEENT: Negative Jaundice
Cardiology: Normal Sinus Rhythm, S1 and S2
Pulmonary: Clear
GI: Soft
Extremities: No C/C/E
Hematologic / Lymphatic: No Lymphadenopathy
Labs
Lab Results
WBC 18.9 10^3/uL (4.8-10.8) H 05/08/25 18:48
RBC 3.69 10^6/uL (4.70-6.10) L 05/08/25 18:48
Hgb 11.2 g/dL (13.0-18.0) L 05/08/25 18:48
Hct 33.3 % (39.0-52.0) L 05/08/25 18:48
MCV 90.2 fL (80.0-94.0) 05/08/25 18:48
MCH 30.4 pg (27.0-31.0) 05/08/25 18:48
MCHC 33.6 g/dL (33.0-37.0) 05/08/25 18:48
RDW 13.4 % (11.5-14.5) 05/08/25 18:48
Plt Count 327 10^3/uL (130-400) 05/08/25 18:48
MPV 10.0 fL (7.4-10.4) 05/08/25 18:48
Abs Immat Gran (auto) 0.2 10^3/uL (0-0.05) H 05/08/25 18:48
Absolute Neuts (auto) 11.8 10^3/uL (1.4-6.5) H 05/08/25 18:48
Absolute Lymphs (auto) 5.9 10^3/uL (1.2-3.4) H 05/08/25 18:48
Absolute Monos (auto) 1.0 10^3/uL (0.1-0.6) H 05/08/25 18:48
Absolute Eos (auto) 0.0 10^3/uL (0-0.7) 05/08/25 18:48
Absolute Basos (auto) 0.1 10^3/uL (0-0.2) 05/08/25 18:48
Immature Gran % 1.1 % (0-0.5) H 05/08/25 18:48
Neutrophils % 62.3 % (42.2-75.2) 05/08/25 18:48
Lymphocytes % 31.1 % (20.5-51.1) 05/08/25 18:48
Monocytes % 5.1 % (1.7-9.3) 05/08/25 18:48
Eosinophils % 0.1 % (0-6) 05/08/25 18:48
Basophils % 0.3 % (0-2) 05/08/25 18:48
Creatinine 0.7 mg/dL (0.7-1.3) 05/08/25 18:48
CT A/P:
IMPRESSION: Status post cholecystectomy. Diffuse intrahepatic bile duct dilation with dilation of the common hepatic duct at the junction with the common bile duct. Abrupt change in caliber with evidence for a mass in the pancreatic head. This most
likely represents pancreatic carcinoma. Less likely differential consideration of a duodenal neoplasm extending into the pancreatic head.
The mass appears to involve the second portion of the duodenum as well, and likely results in obstruction of the duodenum, with dilation of the stomach in the visualized distal esophagus.
Evidence for neoplastic lymphadenopathy as described.
2 small low-density hepatic lesions appear stable from examination of February 02, 2022, with no convincing evidence for hepatic metastatic disease.
Findings of malrotation, stable.
Electronically signed by Khang Jefferson MD, 05/08/2025 8:51 PM
Vital Signs
Vital Signs
Temp Pulse Resp BP Pulse Ox
98.1 F 73 18 158/81 99
05/08/25 22:31 05/08/25 22:31 05/08/25 22:31 05/08/25 22:31 05/08/25 22:31
[2025-05-09 07:37] LABS: Hematocrit 28.8 % (39.0-52.0); Hemoglobin 9.6 g/dL (13.0-18.0); Mean Corp Hgb Conc. 33.3 g/dL (33.0-37.0); Mean Corpuscular Volume 92.0 fL (80.0-94.0); Platelet Count 285 10^3/uL (130-400); Red Cell Dist. Width 13.6 % (11.5-14.5)
[2025-05-09 08:00] VITALS: BP 129/74
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
[2025-05-09 08:19] LABS: ALT (SGPT) 107 U/L (0-50); AST (SGOT) 93 U/L (17-59); Albumin 2.9 g/dl (3.5-5.0); Alkaline Phosphatase 942 U/L (38-126); Blood Urea Nitrogen 9 mg/dl (9-20); Calcium 8.4 mg/dl (8.4-10.2); Carbon Dioxide 27 mmol/L (22-30); Chloride 103 mmol/L (98-107); Estimated Creatinine Clearance 75 ml/min; Glucose 138 mg/dl (70-99); Potassium 3.8 mmol/L (3.5-5.1); Sodium 134 mmol/L (135-145); Total Protein 5.4 g/dl (6.3-8.2); eGFR > 60.00
[2025-05-09] MEDS: AVAPRO 150 MG PO ×2 (08:37→21:16)
[2025-05-09] MEDS: NORVASC 2.5 MG PO (08:37)
[2025-05-09] MEDS: NSS (PRESERVATIVE FREE) 10 ML IV (08:37)
[2025-05-09] MEDS: PROSCAR 5 MG PO (08:37)
[2025-05-09] MEDS: PROTONIX IV 40 MG IV (08:37)
[2025-05-09 08:41] LABS: Glycohemoglobin (HgbA1c) 6.7 % (4.0-5.9)
[2025-05-09] MEDS: NSS 1000 IV (11:32)
[2025-05-09 11:58] LABS: CEA 52.3 ng/ml
--- NOTE | 2025-05-09 12:00 | CON.CAR ---
Addendum entered and electronically signed by Bogdan Jaquez MD 05/09/25 13:27:
I saw and examined the patient.
The [employer] or PA's note was reviewed and I agree with the note.
Comment: General: Well developed, well nourished in NAD.
Neck: Supple, no JVD, HJR, carotids +2 B/L, no bruits bilaterally.
Heart: Non displaced PMI, RRR, 2/6 basal systolic murmur, No S3, S4, no rubs.
Lungs: Clear to auscultation bilaterally, no wheeze, rhonchi, rubs bilaterally,
normal expiratory phase.
Extremities: No clubbing, cyanosis or edema bilaterally.
Neuro: Grossly nonfocal, awake, alert and oriented x3.
Jerome has a history of severe aortic stenosis, CLL, hypertension, reflux, BPH, hypercholesterolemia. He presented with increasing indigestion. He is found to have a pancreatic mass and cardiology is consulted for clearance prior to biopsy and
possible surgical resection. He denies chest pain or shortness of breath.
Catheterization in January 2025 was unremarkable. He has no resting symptoms. Risk is increased for procedures but not prohibitive. Okay for pancreatic biopsy without further testing. Will check ECG and proBNP.
Original Note:
Consultation
Consultation Request
Date/Time Consultation Performed: 05/09/25
Requesting Provider: Dr. Plascencia
Performing Provider: Shagufta Estevez PA-C for Dr. Jaquez
Reason for Consultation: cardiac clearance, severe
Medical History
-
Chief Complaint: poor appetite, N/V, cough
History of Present Illness:
Patient is an 84 yo M with PMH of CLL, HTN, HLD, GERD, diabetes, BPH, severe who noted development of increased indigestion, reflux symptoms beginning 4 to 6 weeks ago. He reports significant cough as well as nausea and vomiting and poor
appetite. He was seen by GI in March and his GERD regimen was increased to Protonix 40 mg twice daily and famotidine 20 mg twice daily with MiraLAX. He was also seen in our office 04/09/2025 due to symptoms. He had undergone cardiac
catheterization 01/2025 which did not show significant CAD, and angina was felt unlikely to be cause of his symptoms. He did wear a 7-day hall monitor due to complaints of elevated heart rates and palpitations which noted rare premature beats,
and rare brief runs of tachycardia, however medication regimen was not changed based on this. He reports over Thanksgiving he ate about a tablespoon of turkey and several green beans due to his symptoms. He has lost approximately 13 pounds. On
arrival to the ER he underwent a CT of the abdomen and pelvis which showed intrahepatic bile duct dilation as well as common bile duct dilation with abrupt change in caliber with evidence for a mass in pancreatic head with concern for pancreatic
carcinoma, also involving second portion of duodenum likely causing obstruction. GI and oncology following. Plan is for ERCP/EUS followed by possible surgical resection. Cardiology consulted for cardiac clearance. At last office visit he was not
anxious to proceed quickly with TAVR workup.
PMH:
Severe
CLL
Hypertension
Hyperlipidemia
GERD
Diabetes
BPH
Past Medical History
Past Medical History: Other (in HPI)
Social History
Tobacco: Non-Smoker
Alcohol: Occasional
Personal:
Living: With Family
Employment: Employed
Family History
Family History: Other (CVA in father, pancreatic cancer in mother)
Allergies / Home Medications
Allergy/AdvReac Type Severity Reaction Status Date / Time
clams Allergy Nausea / Verified 01/18/25 14:40
Vomiting/Diarrhea
promethazine HCl (From Allergy Anaphylaxis Verified 01/18/25 14:40
Phenergan) (swelling
throat)
ramipril Allergy COUGH Verified 01/18/25 14:40
�Medication �Instructions �Recorded �Confirmed �Type
finasteride 5 mg tablet 5 mg PO DAILY Urinary issue 08/05/12 05/08/25 History
atorvastatin 20 mg tablet 20 mg PO QPM High cholesterol 08/17/16 05/08/25 History
pantoprazole 20 mg tablet,delayed 40 mg PO BID Gastrointestinal issue 08/17/16 05/09/25 History
release
trazodone 50 mg tablet 50 mg PO HS Mental Health/Anxiety 09/09/18 05/08/25 History
metformin 500 mg tablet 500 mg PO BID Diabetes 03/22/19 05/08/25 History
famotidine 20 mg tablet 20 mg PO DAILYPRN GERD 06/27/21 05/08/25 History
irbesartan 150 mg tablet 150 mg PO BID 01/18/25 05/08/25 History
loratadine 10 mg tablet (Claritin) 10 mg PO DAILYPRN PRN alleriges 01/18/25 05/08/25 History
metoprolol succinate 25 mg 12.5 mg PO QPM 01/18/25 05/08/25 History
tablet,extended release 24 hr
(Toprol XL)
therapeutic multivitamin 1 tab PO DAILY 01/18/25 05/08/25 History
Lactobacillus rhamnosus GG 10 1 cap PO DAILY 02/23/25 05/08/25 History
billion cell capsule (Culturelle)
amlodipine 2.5 mg tablet 2.5 mg PO DAILY 02/23/25 05/08/25 History
aspirin 81 mg chewable tablet 81 mg PO DAILY 02/23/25 05/08/25 History
(Aspirin Childrens)
dextromethorphan HBr 15 mg tablet 15 mg PO Q6H PRN cough 02/23/25 05/08/25 History
naproxen sodium 220 mg capsule 440 mg PO BID PRN pain 02/23/25 05/08/25 History
(Aleve)
ondansetron 4 mg disintegrating 4 mg PO Q6HPRN PRN nausea/vomiting 02/23/25 05/08/25 History
tablet
polyethylene glycol 3350 17 gram 17 g PO DAILY 02/23/25 05/08/25 History
oral powder packet (Miralax)
famotidine-Ca carb-mag hydrox 10 1 tab PO HS 05/08/25 05/08/25 History
mg-800 mg-165 mg chewable tablet
(Pepcid Complete)
meloxicam 15 mg tablet 15 mg PO DAILY PRN leg swelling 05/08/25 05/08/25 History
Review of Systems
-
History Source: Patient
All other systems: Negative unless noted
Physical Exam
Vital Signs
Temp Pulse Resp BP Pulse Ox
98.2 F 67 15 129/74 96
05/09/25 08:00 05/09/25 08:00 05/09/25 08:00 05/09/25 08:00 05/09/25 08:00
Lab Results
05/09/25 07:08
05/09/25 07:08
Troponin I < 0.012 ng/ml 05/08/25 18:48
Physical Exam
General: Other (cough, chills)
HEENT: Normocephalic, Anicteric and Moist Mucous Membranes
Respiratory: Other (No audible wheezes)
Cardiac: S1/S2, Regular Rhythm and Murmur
Musculoskeletal: No Clubbing, No Cyanosis and Edema (Trace of bilateral lower extremity)
Skin: Warm and Dry
Neuro: AO x 3
Impression / Plan
-
Primary composition tile layer: Dr. Jose E Myrick
Assessment:
Presentation with poor appetite, nausea vomiting, weight loss
Persistent cough
Chills
Leukocytosis
Anemia
Pancreatic mass, likely causing duodenal obstruction based on CT imaging
Elevated LFTs
Severe
CLL
Hypertension
Hyperlipidemia
GERD
Diabetes
BPH
ECHO 03/07/2025: EF 69%, severe with mean pressure gradient 38 mmHg and ARVIN 0.9 cm�, trace AI, mild concentric LVH, mild TR, PAP 36 mmHg
hall monitor 03/2025: rare premature beats, and rare brief runs of tachycardia, otherwise no significant findings
Plan:
-Patient presents with poor appetite, weight loss, N/V, cough and found to have pancreatic mass likely causing duodenal obstruction by CTAP. Needs ERCP/EUS with possible resection to follow. Cardiology consulted for pre op eval as also with severe
-check EKG and place on tele monitoring periop
-check proBNP given cough and , although could be aspiration/reflux related. not on diuretic as OP
-echo from 02/2025 reviewed as above, EF preserved
-last ischemic eval was cath 02/23/25 which was negative for obstructive CAD
-remains on OP norvasc, toprol, avapro
-he is at elevated but not prohibitive cardiac risk to proceed with ERCP/EUS
-will follow
Data Reviewed
-
CT Scan: Report Reviewed by me
Medical Tests (Nuc Med, Echo etc): Report Reviewed by me
Labs: Labs Reviewed by me
Old Records: Reviewed
[2025-05-09 12:32] LABS: Glucose - Point of Care 154 mg/dl (70-99)
[2025-05-09] MEDS: NOVOLOG FLEXPEN-HIGH RESISTANCE SC ×3 (12:40→23:41)
[2025-05-09] MEDS: ROBITUSSIN DM 10 ML PO (13:02)
[2025-05-09 15:00] VITALS: BP 137/61
[2025-05-09] MEDS: TYLENOL 650 MG PO ×2 (15:57→23:25)
--- NOTE | 2025-05-09 16:03 | CM ---
Patient seen at bedside in [address] [place] [address]. Patient states that he lives in a 2 story home with his . Patient has had [facility] in the past but does not feel that he needs their services at this time. Patient uses [facility] for pharmacy needs and his
PCP is Dr. De Dios. Patient has a cane but does not use it and he states that he is independent of adl's and IADL's. Patient plan is for discharge home with no needs.
CM will continue to follow for discharge planning needs.
Plan; home with no needs vs home with VN
[2025-05-09] MEDS: LOVENOX 40 MG SC (18:10)
[2025-05-09] MEDS: TOPROL XL 12.5 MG PO (18:10)
[2025-05-09] MEDS: TORADOL 15 MG IV (18:10)
[2025-05-09] MEDS: ZOSYN 50 IV ×2 (18:26→23:25)
[2025-05-09 19:17] VITALS: BP 111/59
[2025-05-09 22:06] LABS: Glucose - Point of Care 144 mg/dl (70-99)
[2025-05-09 23:00] VITALS: BP 132/66
--- NOTE | 2025-05-09 23:37 | W.PN.UPDATE ---
Update Note
Progress Note Update
Asked to evaluate patient when found to be sweaty/diaphoretic. Vital signs stable, afebrile 97.4, HR 52, BP 132/66, pulsox 99% on room air, glucose 138. Patient states he is chilly and does not feel well, no complaints of pain, nausea, headache,
palpitations. Reports vague symptoms, unable to describe. Work up done earlier in the day for new onset fevers, cultures pending, UA obtained and unremarkable. Notable- Hgb 9.6, previously 11.2, ordered repeat H&H which was stable. Ordered Lactic
acid result 0.7, Magnesium result 1.8.
EKG completed, showed sinus nohemy 51. Patient given Tylenol for body aches.
[2025-05-09] MEDS: DESYREL PO (23:39)
--- NOTE | 2025-05-09 23:47 | PTCARENOTE ---
Addendum entered by Arleen Shearer RN 05/10/25 02:22:
Patient still feeling chills. Rectal temp- 97.8, 130/67, 98% RA, provided warm blankets. HR still in 50s. updated house provider. No new orders.
Original Note:
Patient with sweaty/ diaphoretic. Temp- 97.4, HR- 52, Sinus nohemy, 132/66. patient saying that ' feeling chilly'. Pulse ox- 98% RA
Blood sugar- 131. Notified house METAL NEUTRALIZER. Stat EKG done. Given Tylenol and will hold trazodone as per advise.
[2025-05-10] VITALS (9 sets, daily range): BP systolic 128–149; BP diastolic 57–78; BMI 28.1
[2025-05-10] MEDS: NSS 1000 IV ×2 (00:23→19:58)
[2025-05-10 00:34] LABS: Blood Urea Nitrogen 11 mg/dl (9-20); Calcium 8.5 mg/dl (8.4-10.2); Carbon Dioxide 21 mmol/L (22-30); Chloride 105 mmol/L (98-107); Estimated Creatinine Clearance 65 ml/min; Glucose 122 mg/dl (70-99); Potassium 3.7 mmol/L (3.5-5.1); Sodium 133 mmol/L (135-145); eGFR > 60.00
[2025-05-10 00:44] LABS: Hematocrit 30.6 % (39.0-52.0); Hemoglobin 9.8 g/dL (13.0-18.0); Mean Corp Hgb Conc. 32.0 g/dL (33.0-37.0); Mean Corpuscular Volume 95.0 fL (80.0-94.0); Platelet Count 268 10^3/uL (130-400); Red Cell Dist. Width 13.7 % (11.5-14.5)
[2025-05-10 00:47] LABS: Urine Character Clear (Clear)
[2025-05-10 01:21] LABS: Urine Red Blood Cell 0-2 /HPF (0-2)
[2025-05-10 01:25] LABS: Magnesium 1.8 mg/dl (1.6-2.3)
[2025-05-10] MEDS: ZOSYN 50 IV ×4 (05:09→23:04)
[2025-05-10] MEDS: NOVOLOG FLEXPEN-HIGH RESISTANCE SC ×3 (06:09→18:02)
[2025-05-10 06:16] LABS: Glucose - Point of Care 131 mg/dl (70-99)
[2025-05-10 06:16] LABS: Glucose - Point of Care 103 mg/dl (70-99)
[2025-05-10 07:54] LABS: Hematocrit 29.7 % (39.0-52.0); Hemoglobin 10.0 g/dL (13.0-18.0); Mean Corp Hgb Conc. 33.7 g/dL (33.0-37.0); Mean Corpuscular Volume 92.8 fL (80.0-94.0); Platelet Count 271 10^3/uL (130-400); Red Cell Dist. Width 13.7 % (11.5-14.5)
[2025-05-10 07:59] LABS: INR 1.28; PT 15.8 Sec (11.4-14.6)
[2025-05-10 08:26] LABS: ALT (SGPT) 97 U/L (0-50); AST (SGOT) 75 U/L (17-59); Albumin 2.9 g/dl (3.5-5.0); Alkaline Phosphatase 804 U/L (38-126); Blood Urea Nitrogen 12 mg/dl (9-20); Calcium 8.5 mg/dl (8.4-10.2); Carbon Dioxide 23 mmol/L (22-30); Chloride 108 mmol/L (98-107); Estimated Creatinine Clearance 65 ml/min; Glucose 104 mg/dl (70-99); Potassium 3.5 mmol/L (3.5-5.1); Sodium 138 mmol/L (135-145); Total Protein 5.6 g/dl (6.3-8.2); eGFR > 60.00
[2025-05-10] MEDS: NSS (PRESERVATIVE FREE) 10 ML IV (08:45)
[2025-05-10] MEDS: PROTONIX IV 40 MG IV (08:45)
[2025-05-10] MEDS: PROSCAR 5 MG PO (08:50)
[2025-05-10] MEDS: AVAPRO 150 MG PO ×2 (08:50→19:55)
[2025-05-10] MEDS: NORVASC 2.5 MG PO (08:50)
[2025-05-10] MEDS: OCEAN, SALINE MIST 2 SPRAYS NASAL (10:15)
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
--- NOTE | 2025-05-10 10:45 | W.PN.ONC ---
Today's Communication / Plan
-
EUS scheduled
With history of CLL Bose's transformation not completely excluded, await tissue diagnosis
Mass appears to be not only affecting the pancreas but also invading the duodenum causing duodenal obstruction.
CA 19-9 pending
Impression
Impression
Suspect primary pancreatic (vs. duodenal malignancy) with regional neoplastic lymphadenopathy but no evidence of metastatic disease
History of CLL
Subjective/Objective
Subjective/Objective
Continue to have mild abdominal discomfort
Vital Signs:
Vital Signs
Temp Pulse Resp BP Pulse Ox
98.1 F 73 18 135/70 99
05/10/25 08:13 05/10/25 08:50 05/10/25 08:13 05/10/25 08:50 05/10/25 10:32
Physical exam unchanged
Lab Results:
Laboratory Data
WBC 17.9 10^3/uL (4.8-10.8) H 05/10/25 07:28
Hgb 10.0 g/dL (13.0-18.0) L 05/10/25 07:28
Plt Count 271 10^3/uL (130-400) 05/10/25 07:28
PT 15.8 Sec (11.4-14.6) H 05/10/25 07:28
INR 1.28 05/10/25 07:28
eGFR > 60.00 05/10/25 07:28
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
--- NOTE | 2025-05-10 12:33 | W.PN.CARDCBS ---
Addendum entered and electronically signed by Paul Mclaughlin MD 05/10/25 13:12:
I saw and examined the patient.
The Classifying Machine Operator's note was reviewed and I agree with the note.
Comment:
GEN: No distress, awake, Ox3
HEENT: supple, anicteric, mmm
LUNGS: CTA, no wheezes/rales
CV: Reg, S1/S2, 2/6 syst LSB, no gallop
ABD: soft, BS+, NT/ND
EXT: No edema
NEURO: Gross non-focal
SKIN: No rash
Plan:
Stable to proceed with ERCP/EUS.
He does have severe Aortic stenosis so any procedure will be increased risk
Pro-bnp is within normal limits.
cath with no significant disease.
Original Note:
Today's Communication / Plan
-
for ERCP/EUS today
appears stable from cardiac standpoint
he is at elevated but not prohibitive cardiac risk to proceed
Impression / Plan
-
Primary data communications analyst: Dr. Jose E Myrick
Assessment:
Presentation with poor appetite, nausea vomiting, weight loss
Persistent cough
Chills
Leukocytosis
Anemia
Pancreatic mass, likely causing duodenal obstruction based on CT imaging
Elevated LFTs
Severe
CLL
Hypertension
Hyperlipidemia
GERD
Diabetes
BPH
ECHO 03/07/2025: EF 69%, severe with mean pressure gradient 38 mmHg and ARVIN 0.9 cm�, trace AI, mild concentric LVH, mild TR, PAP 36 mmHg
patient monitor 03/2025: rare premature beats, and rare brief runs of tachycardia, otherwise no significant findings
Plan:
-Patient presents with poor appetite, weight loss, N/V, cough and found to have pancreatic mass likely causing duodenal obstruction by CTAP. Needs ERCP/EUS with possible resection to follow. Cardiology consulted for pre op eval as also with severe
-EKG reviewed, SB. on tele overnight SR/SB with PVCs at times in pattern of PVCs. continue monitoring periop
-proBNP 325. not felt to have acute CHF. follow volume status
-echo from 02/2025 reviewed as above, EF preserved
-last ischemic eval was cath 02/23/25 which was negative for obstructive CAD
-remains on OP norvasc, toprol, avapro
-he is at elevated but not prohibitive cardiac risk to proceed with ERCP/EUS, planned for today
-d/w nursing
Progress Note - Wrapper And Preserver
Subjective
Date of Service: May 10, 2025
denies CP, SOB, palpitations
Objective
Labs:
05/10/25 07:28
05/10/25 07:28
Labs
Hgb 10.0 g/dL (13.0-18.0) L 05/10/25 07:28
Hct 29.7 % (39.0-52.0) L 05/10/25 07:28
Plt Count 271 10^3/uL (130-400) 05/10/25 07:28
PT 15.8 Sec (11.4-14.6) H 05/10/25 07:28
INR 1.28 05/10/25 07:28
Sodium 138 mmol/L (135-145) 05/10/25 07:28
Potassium 3.5 mmol/L (3.5-5.1) 05/10/25 07:28
BUN 12 mg/dl (9-20) 05/10/25 07:28
Creatinine 0.8 mg/dL (0.7-1.3) 05/10/25 07:28
Glucose 104 mg/dl (70-99) H 05/10/25 07:28
Troponins
05/08/25
18:48
Troponin I < 0.012
Vital Signs and I&O:
Vital Signs
Temp Pulse Resp BP Pulse Ox
98.2 F 58 18 133/63 99
05/10/25 11:50 05/10/25 11:50 05/10/25 11:50 05/10/25 11:50 05/10/25 11:50
Vital Signs
Temp Pulse Resp BP Pulse Ox
98.2 F 58 18 133/63 99
05/10/25 11:50 05/10/25 11:50 05/10/25 11:50 05/10/25 11:50 05/10/25 11:50
Intake & Output
05/08/25 05/09/25 05/10/25 05/11/25
07:59 07:59 07:59 07:59
Intake Total 480 / 480 960 / 960 50 / 50
Output Total 450 / 450
Balance 480 / 480 510 / 510 50 / 50
Physical Exam
Physical Exam
GEN: No distress, awake, alert, oriented x3
HEENT: supple, anicteric, mmm, eomi
LUNGS: CTA B/L, no wheezes/rales
CV: Reg, S1/S2, 2/6 syst LSB
ABD: soft, BS+, NT/ND
EXT: No cyanosis, clubbing, edema
NEURO: Gross non-focal
SKIN: Warm, pink, dry. No rash
[2025-05-10] MEDS: NSS IV (12:50)
--- NOTE | 2025-05-10 17:29 | W.PN.UPDATE ---
Update Note
Progress Note Update
EUS showed 3.5 x 4.1 cm mass in the head of pancreas, abutting PV (possibly encasing it). FNA performed. Given pt's GOO and duodenal stenosis observed, therapeutid EGD was performed and enteral stent (duodenal stent) was placed under fluoroscopic
guidance. Next, given dilated CBD/elevated LFT, biliary obstruction is anticipated and multiple attempts were made to cannulate bile duct; however ultimately unsuccessful due to severe duodenal deformity/stenosis and inability to locate ampulla
after duodenal stent placement. If jaundice occurs, then will need to consider IR-guided rendezous vs EUS guided choledochoduodenostomy. CLD today.
[2025-05-10 17:41] LABS: Glucose - Point of Care 111 mg/dl (70-99)
[2025-05-10] MEDS: TOPROL XL 12.5 MG PO (17:56)
[2025-05-10] MEDS: LOVENOX 40 MG SC (17:59)
[2025-05-10 18:01] LABS: Glucose - Point of Care 114 mg/dl (70-99)
--- NOTE | 2025-05-10 18:16 | PTCARENOTE ---
Pt back from PACU, VSS, AAOx3, no c/o pain or nausea. Pt resting comfortably in bed with call styles at side, no new orders at this time. Clear liquid diet placed, accucheck 114. Family provided with update.
[2025-05-10 22:08] LABS: Glucose - Point of Care 215 mg/dl (70-99)
[2025-05-10] MEDS: DESYREL 50 MG PO (23:04)
--- NOTE | 2025-05-11 00:48 | W.PN.UPDATE ---
Update Note
Progress Note Update
13 beats of v-tach, asymptomatic, stable VS. AM labs noted
will replete K. labs due in AM, will add Mag.
[2025-05-11] MEDS: KCL 40 MEQ PO (01:00)
--- NOTE | 2025-05-11 01:22 | PTCARENOTE ---
Patient with 13beats of V-tach. Patient is sleeping/asymptomatic. Notified house provider. See MAR for orders.
[2025-05-11 03:17] VITALS: BP 125/64
[2025-05-11] MEDS: ZOSYN 50 IV ×4 (05:07→23:25)
[2025-05-11 05:58] VITALS: BMI 28.3
[2025-05-11 06:00] VITALS: BMI 28.3
[2025-05-11 07:00] VITALS: BP 138/70
--- NOTE | 2025-05-11 07:41 | W.PN.GI.CBS2 ---
Today's Communication / Plan
-
Tolerating liquids, okay to proceed with enteral stent diet. Outpatient f/u with Dr. Phan. Trend LFTs. Oncology follow-up
Assessment / Plan
-
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 Westbrook, ? squamous cell CA of leg, HTN,
hyperlipidemia, martin's esophagus, Schatzki's ring, HH, IBS constipation, BPH, obesity, hearing loss, multiple joint surgeries, prior appe, brendan, insomnia, ED, diverticulosis with onset of nausea and vomiting. Pt was seen in GI office March
with increased GERD and optimization of regiment to Protonix 40mg BID and Famotidine 20mg BID along with adding Miralax daily with constipation. In review further with patient he admits to no feeling well for about 4 weeks. Initial GERD and
constipation then diarrhea after laxatives but also decreased appetite and 13 lbs wt loss. He also admits to persistent cough possible GERD related but also admits to recent work up with cardiology for severe . He admits to eating lunch 05/08
around 1:30PM but continued with dizziness and actually had a formed stool. He then vomited large amount around 4pm prompting ER eval. He also complaints of persistent LLQ pain and some bloating. Pt otherwise denies odynophagia, dysphagia,
hematemesis, blood or black in stools. On admission noted with WBC 18,900, hbg 11.2, Na 134, glucose 234, lactate 3, bili 1.4, AST 85, ALT 106, alk phos 827 and lipase 313. Pt on daily ASA no other NSAIDs or anticoagulation.+ family hx mother
with pancreatic CA.
05/08/25 CT with Iv contrast s/p brendan diffuse intrahepatic bile duct dilatation with dilation of common hepatic duct at junction of CBD with abrupt change in caliber with mass in pancreatic head with concern for pancreatic carcinoma with involvement
of second portion of duodenum with obstruction of duodenum with dilation of stomach, dilation of fluid filled distal esophagus and fluid filled HH. There is also mild rotation within SMV to superior aspect of SMA no encasement of SMA or SMV and
noted prominent lymph nodes. liver lesion likely cyst and liver hemagioma. Mild rotation of colon left side abdomen. Pt on daily ASA no other NSAIDs or anticoagulation.+ family hx mother with pancreatic CA.
05/10/25-Patient is s/p EGD showing extrinsic severe stenosis in the first portion of duodenum, attempted dilation to 15 mm unsuccessful, then able to traverse following placement of enteric stent. Severe duodenal deformity, unable to cannulate
ampulla to perform ERCP. EUS with FNA of pancreatic head mass, likely adenocarcinoma vs less likely pancreatic lymphoma.
A/P:
Tolerating clear liquids, patient given instructions on enteral stent diet by Dr. Phan
No need for biliary decompression at this time but may require in the future, at which time would require IR-guided rendezvous or EUS-guided choledochoduoenostomy
He will follow-up in the office with Dr. Phan (will arrange OV for him)
Trend LFTs--uptrending today, could be from manipulation during procedure, will add on lipase
Bowel Regimen
Oncology follow-up
Subjective
Subjective
Date of Service: May 11, 2025
s/p EGD w/ findings of gastric outlet obstruction and severe duodenal stenosis now s/p enteric stent placement. Unable to complete ERCP. EUS w/ FNA of pancreatic head mass performed. He states he is tolerating clear liquids okay. Last BM on Wednesday.
Admits to some mild RLQ pain. Denies any fever/chills, back pain, epigastric pain, nausea, vomiting.
Objective
Data Reviewed
Laboratory Data:
Laboratory Results
PT 15.8 Sec (11.4-14.6) H 05/10/25 07:28
INR 1.28 05/10/25 07:28
Magnesium 1.8 mg/dl (1.6-2.3) 05/10/25 00:05
Total Bilirubin 2.0 mg/dl (0.2-1.3) H 05/10/25 07:28
AST 75 U/L (17-59) H 05/10/25 07:28
ALT 97 U/L (0-50) H 05/10/25 07:28
Alkaline Phosphatase 804 U/L (38-126) H 05/10/25 07:28
Lipase 313 U/L (23-300) H 05/08/25 18:48
Vital Signs and I&O:
Vital Signs
Temp Pulse Resp BP Pulse Ox
97.6 F 53 18 125/64 99
05/11/25 03:17 05/11/25 03:17 05/11/25 03:17 05/11/25 03:17 05/11/25 03:17
I&O
05/10/25 05/11/25 05/12/25
06:59 06:59 06:59
Intake Total 960 / 960 2540 / 2540
Output Total 450 / 450
Balance 510 / 510 2540 / 2540
Physical Exam
Physical Exam
GENERAL: In no acute distress, appears comfortable
ABDOMEN: +BS; soft, nondistended; mild TTP in RLQ with deep palpation, no rebound or guarding
[2025-05-11] MEDS: NSS (PRESERVATIVE FREE) 10 ML IV (08:03)
[2025-05-11] MEDS: PROTONIX IV 40 MG IV (08:03)
[2025-05-11] MEDS: NORVASC 2.5 MG PO (08:04)
[2025-05-11] MEDS: AVAPRO 150 MG PO ×2 (08:04→20:44)
[2025-05-11] MEDS: PROSCAR 5 MG PO (08:07)
[2025-05-11 08:55] LABS: Hematocrit 29.4 % (39.0-52.0); Hemoglobin 9.7 g/dL (13.0-18.0); Mean Corp Hgb Conc. 33.0 g/dL (33.0-37.0); Mean Corpuscular Volume 91.9 fL (80.0-94.0); Platelet Count 276 10^3/uL (130-400); Red Cell Dist. Width 13.6 % (11.5-14.5)
[2025-05-11 09:02] LABS: Glucose - Point of Care 143 mg/dl (70-99)
[2025-05-11] MEDS: NOVOLOG FLEXPEN-HIGH RESISTANCE SC ×2 (09:03→17:08)
[2025-05-11 09:29] LABS: ALT (SGPT) 120 U/L (0-50); AST (SGOT) 137 U/L (17-59); Albumin 2.8 g/dl (3.5-5.0); Alkaline Phosphatase 1007 U/L (38-126); Blood Urea Nitrogen 13 mg/dl (9-20); Calcium 8.2 mg/dl (8.4-10.2); Carbon Dioxide 24 mmol/L (22-30); Chloride 106 mmol/L (98-107); Estimated Creatinine Clearance 65 ml/min; Glucose 135 mg/dl (70-99); Magnesium 1.9 mg/dl (1.6-2.3); Potassium 3.9 mmol/L (3.5-5.1); Sodium 136 mmol/L (135-145); Total Protein 5.5 g/dl (6.3-8.2); eGFR > 60.00
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
[2025-05-11] MEDS: MIRALAX 17 GRAMS PO (11:15)
[2025-05-11 11:23] VITALS: BP 119/59
--- NOTE | 2025-05-11 11:50 | CM ---
Addendum entered by Zoë Sánchez 05/11/25 15:27:
[facility] not accepting [facility] for [facility] at this time. Referral sent to [facility]
Original Note:
Patient seen at bedside, IMM completed and signed form placed on chart. Patient referral to [facility] with Band Head Saw Operator to complete assessment for supports. Patient for discharge tomorrow pending physician assessment. CM will continue to follow
for discharge planning needs.
Plan; home with [facility] for follow up at home
[2025-05-11 12:22] LABS: Glucose - Point of Care 250 mg/dl (70-99)
[2025-05-11] MEDS: NOVOLOG FLEXPEN-HIGH RESISTANCE 7 UNITS SC (12:27)
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
[2025-05-11 13:03] LABS: Lipase 387 U/L (23-300)
[2025-05-11 15:00] VITALS: BP 113/62
[2025-05-11 17:03] LABS: Glucose - Point of Care 106 mg/dl (70-99)
[2025-05-11] MEDS: LOVENOX 40 MG SC (17:42)
[2025-05-11] MEDS: TOPROL XL 12.5 MG PO (17:42)
[2025-05-11 18:08] LABS: CA 19-9 97 U/mL (<=35)
[2025-05-11 19:32] VITALS: BP 123/69
--- NOTE | 2025-05-11 21:01 | CON.SURG ---
Surgical Consultation
-
Mr. Jerome Bradshaw (1940) is an 84-year-old man who was admitted on 05/08/25 with left upper quadrant abdominal pain, nausea, and vomiting with 12 lb weight loss. His blood work showed elevated WBC to 18.9 with elevated LFTs (TB 1.4, AST 85,
ALT 106, ALK 827, and lipase 313). Furthermore, he was found to have cholangitis with E.Coli bacteremia. Currently, he is on Zosyn with a good response.
Subsequently, he had an MRI and a CT of the abdomen and pelvis, which revealed a 5.5 cm pancreatic head tumor causing biliary and gastric outlet obstructions. There was some regional lymphadenopathy, but no evidence of local vascular involvement or
metastatic disease.
On 05/10/25, he underwent EGD, EUS, and ERCP, which confirmed a pancreatic head tumor invading the duodenum and distal CBD with tumor abutting/encasing the portal vein. Although Dr. Phan was able to place a duodenal stent, he was not able to
cannulate the CBD to decompress his biliary tree. He is feeling better but still has some abdominal pain. His past medical history is significant for CAD, aortic stenosis, HTN, DM2, and CLL. He is allergic to clams, promethazine, and ramipril.
His head and neck examination revealed no lymphadenopathy or masses. The heart had a regular rate and no murmurs. The chest was clear bilaterally. The abdomen was soft, nondistended, and without masses. He had minimal epigastric tenderness to
palpation.
I had a long discussion with him regarding managing his pancreatic mass. We discussed the differential diagnosis, including transformation of CLL to more aggressive lymphoma in the pancreas versus pancreatic cancer. If this is a pancreatic cancer
and he is a surgical candidate, I would recommend placing a transhepatic stent as Dr. Phan described, and consider neoadjuvant systemic therapy, then consider definitive surgical resection. If he is not a surgical candidate or if he is not interested
in the surgical resection, I would consider surgical bypasses of his biliary tree and stomach.
I recommend obtaining a CT angiogram and venous phase of the abdomen and pelvis to assess potential portal vein involvement better.
I will make further recommendations when the biopsy results become available.
[2025-05-11 21:47] LABS: Glucose - Point of Care 166 mg/dl (70-99)
[2025-05-11] MEDS: DESYREL 50 MG PO (22:13)
[2025-05-11] MEDS: ROBITUSSIN DM 10 ML PO (22:15)
[2025-05-11 23:22] VITALS: BP 132/68
[2025-05-12 03:10] VITALS: BP 131/61
[2025-05-12] MEDS: ZOSYN 50 IV ×3 (05:22→18:15)
[2025-05-12 06:00] VITALS: BMI 28.4
[2025-05-12 07:00] VITALS: BP 148/79
[2025-05-12 07:33] LABS: Hematocrit 29.0 % (39.0-52.0); Hemoglobin 9.8 g/dL (13.0-18.0); Mean Corp Hgb Conc. 33.8 g/dL (33.0-37.0); Mean Corpuscular Volume 91.5 fL (80.0-94.0); Platelet Count 273 10^3/uL (130-400); Red Cell Dist. Width 14.2 % (11.5-14.5)
[2025-05-12 07:58] LABS: ALT (SGPT) 160 U/L (0-50); AST (SGOT) 182 U/L (17-59); Albumin 2.7 g/dl (3.5-5.0); Alkaline Phosphatase 1000 U/L (38-126); Blood Urea Nitrogen 7 mg/dl (9-20); Calcium 7.9 mg/dl (8.4-10.2); Carbon Dioxide 23 mmol/L (22-30); Chloride 105 mmol/L (98-107); Estimated Creatinine Clearance 65 ml/min; Glucose 139 mg/dl (70-99); Sodium 136 mmol/L (135-145); Total Protein 5.3 g/dl (6.3-8.2); eGFR > 60.00
[2025-05-12] MEDS: NSS (PRESERVATIVE FREE) 10 ML IV ×2 (08:02→21:10)
[2025-05-12] MEDS: NORVASC 2.5 MG PO (08:02)
[2025-05-12] MEDS: AVAPRO 150 MG PO ×2 (08:02→21:11)
[2025-05-12] MEDS: PROTONIX IV 40 MG IV ×2 (08:02→21:11)
[2025-05-12] MEDS: MIRALAX 17 GRAMS PO (08:02)
[2025-05-12] MEDS: PROSCAR 5 MG PO (08:03)
[2025-05-12 08:04] LABS: Potassium 3.8 mmol/L (3.5-5.1)
--- NOTE | 2025-05-12 08:08 | W.PN.GI.CBS2 ---
Today's Communication / Plan
-
LFTs Increasing. CT Angio pending. Possible biliary stent attempt on Wednesday, pending discussion with Dr. Phan
Assessment / Plan
-
Pt is an 84yo with hx non obstructive CAD, severe with current work up, NIDDM, GERD with recent worsening symptoms , CLL and non hodgkin's lymphoma of small bowel with jail follow with Dr. Westbrook, ? squamous cell CA of leg, HTN,
hyperlipidemia, martin's esophagus, Schatzki's ring, HH, IBS constipation, BPH, obesity, hearing loss, multiple joint surgeries, prior appe, brendan, insomnia, ED, diverticulosis with onset of nausea and vomiting. Pt was seen in GI office March
with increased GERD and optimization of regiment to Protonix 40mg BID and Famotidine 20mg BID along with adding Miralax daily with constipation. In review further with patient he admits to no feeling well for about 4 weeks. Initial GERD and
constipation then diarrhea after laxatives but also decreased appetite and 13 lbs wt loss. He also admits to persistent cough possible GERD related but also admits to recent work up with cardiology for severe . He admits to eating lunch 05/08
around 1:30PM but continued with dizziness and actually had a formed stool. He then vomited large amount around 4pm prompting ER eval. He also complaints of persistent LLQ pain and some bloating. Pt otherwise denies odynophagia, dysphagia,
hematemesis, blood or black in stools. On admission noted with WBC 18,900, hbg 11.2, Na 134, glucose 234, lactate 3, bili 1.4, AST 85, ALT 106, alk phos 827 and lipase 313. Pt on daily ASA no other NSAIDs or anticoagulation.+ family hx mother
with pancreatic CA.
05/08/25 CT with Iv contrast s/p brendan diffuse intrahepatic bile duct dilatation with dilation of common hepatic duct at junction of CBD with abrupt change in caliber with mass in pancreatic head with concern for pancreatic carcinoma with involvement
of second portion of duodenum with obstruction of duodenum with dilation of stomach, dilation of fluid filled distal esophagus and fluid filled HH. There is also mild rotation within SMV to superior aspect of SMA no encasement of SMA or SMV and
noted prominent lymph nodes. liver lesion likely cyst and liver hemagioma. Mild rotation of colon left side abdomen. Pt on daily ASA no other NSAIDs or anticoagulation.+ family hx mother with pancreatic CA.
05/10/25-Patient is s/p EGD showing extrinsic severe stenosis in the first portion of duodenum, attempted dilation to 15 mm unsuccessful, then able to traverse following placement of enteric stent. Severe duodenal deformity, unable to cannulate
ampulla to perform ERCP. EUS with FNA of pancreatic head mass, likely adenocarcinoma vs less likely pancreatic lymphoma.
A/P:
Increase bowel regimen, may be contributing to current discomfort-- will add 2x senokot and daily miralax
Dr. Unger evaluating patient for surgical candidacy, CT Angio pending
Patient would like to try some purees, will see if he tolerates okay
Increase PPI to BID
Add Carafate
LFTs uptrending-- will review CT angio once completed and discuss biliary decompression with Dr. Phan-- would require IR-guided rendezvous or EUS-guided choledochoduoenostomy
Tolerating clear liquids, patient given instructions on enteral stent diet by Dr. Phan
No need for biliary decompression at this time but may require in the future, at which time would require IR-guided rendezvous or EUS-guided choledochoduoenostomy
Oncology follow-up
Subjective
Subjective
Date of Service: May 12, 2025
Patient seen in follow-up, states he had a more difficult time at dinner last night with some epigastric pain. He did walk around and this helped. He was given MiraLAX yesterday, still no bowel movement. LFTs increasing today. He was seen by
Cornel, CT angio pending.
Objective
Data Reviewed
Laboratory Data:
Laboratory Results
05/12/25 06:30
05/12/25 06:30
Laboratory Results
PT 15.8 Sec (11.4-14.6) H 05/10/25 07:28
INR 1.28 05/10/25 07:28
Magnesium 1.9 mg/dl (1.6-2.3) 05/11/25 08:26
Total Bilirubin 4.7 mg/dl (0.2-1.3) H 05/12/25 06:30
AST 182 U/L (17-59) H 05/12/25 06:30
ALT 160 U/L (0-50) H 05/12/25 06:30
Alkaline Phosphatase 1000 U/L (38-126) H 05/12/25 06:30
Lipase 387 U/L (23-300) H 05/11/25 08:26
Vital Signs and I&O:
Vital Signs
Temp Pulse Resp BP Pulse Ox
98.3 F 59 18 131/61 98
05/12/25 03:10 05/12/25 03:10 05/12/25 03:10 05/12/25 03:10 05/12/25 03:10
I&O
05/11/25 05/12/25 05/13/25
06:59 06:59 06:59
Intake Total 2540 / 2540 2300 / 2300
Balance 2540 / 2540 2300 / 2300
Physical Exam
Physical Exam
GENERAL: In no acute distress, appears comfortable
ABDOMEN: +BS; soft, nondistended; mild TTP in RLQ and epigastrium with deep palpation, no rebound or guarding
[2025-05-12 08:12] LABS: Glucose - Point of Care 144 mg/dl (70-99)
[2025-05-12] MEDS: NOVOLOG FLEXPEN-HIGH RESISTANCE SC (08:14)
[2025-05-12] MEDS: SENOKOT 17.2 MG PO (08:57)
[2025-05-12 11:00] VITALS: BP 148/73
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
[2025-05-12] MEDS: CARAFATE SUSPENSION 1 GM PO ×2 (12:08→17:45)
[2025-05-12 13:31] LABS: Glucose - Point of Care 183 mg/dl (70-99)
[2025-05-12] MEDS: NOVOLOG FLEXPEN-HIGH RESISTANCE 2 UNITS SC (13:41)
[2025-05-12 15:00] VITALS: BP 144/73
[2025-05-12] MEDS: LOVENOX 40 MG SC (17:41)
[2025-05-12] MEDS: ROBITUSSIN DM 10 ML PO (17:45)
[2025-05-12 17:56] LABS: Glucose - Point of Care 154 mg/dl (70-99)
[2025-05-12] MEDS: TOPROL XL 12.5 MG PO (18:06)
[2025-05-12] MEDS: NOVOLOG FLEXPEN-HIGH RESISTANCE 1 UNITS SC (18:07)
[2025-05-12] MEDS: DESYREL 50 MG PO (21:14)
[2025-05-12 21:33] LABS: Glucose - Point of Care 234 mg/dl (70-99)
[2025-05-12 23:57] VITALS: BP 149/74
[2025-05-13] MEDS: CARAFATE SUSPENSION 1 GM PO ×4 (00:17→17:35)
[2025-05-13] MEDS: ZOSYN 50 IV ×2 (00:17→05:31)
[2025-05-13 05:49] VITALS: BMI 28.2
[2025-05-13 07:18] VITALS: BP 151/75
[2025-05-13 08:10] LABS: Hematocrit 29.1 % (39.0-52.0); Hemoglobin 9.6 g/dL (13.0-18.0); Mean Corp Hgb Conc. 33.0 g/dL (33.0-37.0); Mean Corpuscular Volume 91.5 fL (80.0-94.0); Platelet Count 278 10^3/uL (130-400); Red Cell Dist. Width 14.2 % (11.5-14.5)
[2025-05-13 08:31] LABS: ALT (SGPT) 173 U/L (0-50); AST (SGOT) 186 U/L (17-59); Albumin 2.8 g/dl (3.5-5.0); Alkaline Phosphatase 964 U/L (38-126); Blood Urea Nitrogen 6 mg/dl (9-20); Calcium 8.0 mg/dl (8.4-10.2); Carbon Dioxide 23 mmol/L (22-30); Chloride 104 mmol/L (98-107); Estimated Creatinine Clearance 75 ml/min; Glucose 129 mg/dl (70-99); Potassium 3.7 mmol/L (3.5-5.1); Sodium 134 mmol/L (135-145); Total Protein 5.5 g/dl (6.3-8.2); eGFR > 60.00
[2025-05-13 08:53] LABS: Glucose - Point of Care 142 mg/dl (70-99)
[2025-05-13] MEDS: AVAPRO 150 MG PO ×2 (08:54→20:45)
[2025-05-13] MEDS: PROSCAR 5 MG PO (08:55)
[2025-05-13] MEDS: NORVASC 2.5 MG PO (08:55)
[2025-05-13] MEDS: NSS (PRESERVATIVE FREE) 10 ML IV ×2 (08:55→20:45)
[2025-05-13] MEDS: PROTONIX IV 40 MG IV ×2 (08:55→20:45)
[2025-05-13] MEDS: MIRALAX 17 GRAMS PO (08:56)
[2025-05-13] MEDS: NOVOLOG FLEXPEN-HIGH RESISTANCE 1 UNITS SC (09:01)
--- NOTE | 2025-05-13 09:07 | W.PN.GI.CBS2 ---
Today's Communication / Plan
-
Will discuss case with Dr. Phan, will place NPO PMN just in case
Assessment / Plan
-
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 Westbrook, ? squamous cell CA of leg, HTN,
hyperlipidemia, martin's esophagus, Schatzki's ring, HH, IBS constipation, BPH, obesity, hearing loss, multiple joint surgeries, prior appe, brendan, insomnia, ED, diverticulosis with onset of nausea and vomiting. Pt was seen in GI office March
with increased GERD and optimization of regiment to Protonix 40mg BID and Famotidine 20mg BID along with adding Miralax daily with constipation. In review further with patient he admits to no feeling well for about 4 weeks. Initial GERD and
constipation then diarrhea after laxatives but also decreased appetite and 13 lbs wt loss. He also admits to persistent cough possible GERD related but also admits to recent work up with cardiology for severe . He admits to eating lunch 05/08
around 1:30PM but continued with dizziness and actually had a formed stool. He then vomited large amount around 4pm prompting ER eval. He also complaints of persistent LLQ pain and some bloating. Pt otherwise denies odynophagia, dysphagia,
hematemesis, blood or black in stools. On admission noted with WBC 18,900, hbg 11.2, Na 134, glucose 234, lactate 3, bili 1.4, AST 85, ALT 106, alk phos 827 and lipase 313. Pt on daily ASA no other NSAIDs or anticoagulation.+ family hx mother
with pancreatic CA.
05/08/25 CT with Iv contrast s/p brendan diffuse intrahepatic bile duct dilatation with dilation of common hepatic duct at junction of CBD with abrupt change in caliber with mass in pancreatic head with concern for pancreatic carcinoma with involvement
of second portion of duodenum with obstruction of duodenum with dilation of stomach, dilation of fluid filled distal esophagus and fluid filled HH. There is also mild rotation within SMV to superior aspect of SMA no encasement of SMA or SMV and
noted prominent lymph nodes. liver lesion likely cyst and liver hemagioma. Mild rotation of colon left side abdomen. Pt on daily ASA no other NSAIDs or anticoagulation.+ family hx mother with pancreatic CA.
05/10/25-Patient is s/p EGD showing extrinsic severe stenosis in the first portion of duodenum, attempted dilation to 15 mm unsuccessful, then able to traverse following placement of enteric stent. Severe duodenal deformity, unable to cannulate
ampulla to perform ERCP. EUS with FNA of pancreatic head mass, likely adenocarcinoma vs less likely pancreatic lymphoma.
A/P:
LFTs uptrending since procedure, Bili 5.4, AST 186, ALT 173, Alk phos 964
Continue bowel regimen
Dr. Unger evaluating patient for surgical candidacy, CT Angio pending
Continue pureed/enteral stent diet
PPI BID, Carafate
Add Carafate
LFTs uptrending--will discuss with Dr. Phan and see if reattempt at biliary decompression is indicated now, would require IR-guided rendezvous or EUS-guided choledochoduoenostomy; will make him NPO after midnight just in case he proceeds tomorrow
Oncology follow-up; path pending
Subjective
Subjective
Date of Service: May 13, 2025
Patient seen in follow-up. Tolerating the diet okay-- still has some RLQ abdominal discomfort, his epigastric pain has resolved. He did move his bowels yesterday, is unsure if it helped. Bili continues to rise, now 5.4
Objective
Data Reviewed
Laboratory Data:
Laboratory Results
05/13/25 07:04
05/13/25 07:04
Laboratory Results
PT 15.8 Sec (11.4-14.6) H 05/10/25 07:28
INR 1.28 05/10/25 07:28
Magnesium 1.9 mg/dl (1.6-2.3) 05/11/25 08:26
Total Bilirubin 5.4 mg/dl (0.2-1.3) H 05/13/25 07:04
AST 186 U/L (17-59) H 05/13/25 07:04
ALT 173 U/L (0-50) H 05/13/25 07:04
Alkaline Phosphatase 964 U/L (38-126) H 05/13/25 07:04
Lipase 387 U/L (23-300) H 05/11/25 08:26
Vital Signs and I&O:
Vital Signs
Temp Pulse Resp BP Pulse Ox
98.6 F 83 16 151/75 96
05/13/25 07:18 05/13/25 08:55 05/13/25 07:18 05/13/25 08:55 05/13/25 07:18
I&O
05/12/25 05/13/25 05/14/25
06:59 06:59 06:59
Intake Total 2300 / 2300 890 / 890
Output Total 350 / 350
Balance 2300 / 2300 540 / 540
Physical Exam
Physical Exam
GENERAL: In no acute distress, appears comfortable
ABDOMEN: +BS; soft, nondistended; mild TTP in RLQ and epigastrium with deep palpation, no rebound or guarding
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
[2025-05-13 12:56] LABS: Glucose - Point of Care 300 mg/dl (70-99)
[2025-05-13] MEDS: NOVOLOG FLEXPEN-HIGH RESISTANCE 10 UNITS SC (13:26)
[2025-05-13] MEDS: UNASYN IV ×2 (13:26→17:35)
[2025-05-13 16:00] VITALS: BP 141/72
[2025-05-13 17:35] LABS: Glucose - Point of Care 186 mg/dl (70-99)
[2025-05-13] MEDS: TOPROL XL 12.5 MG PO (17:35)
[2025-05-13] MEDS: LOVENOX 40 MG SC (17:36)
[2025-05-13] MEDS: NOVOLOG FLEXPEN-HIGH RESISTANCE 2 UNITS SC (17:36)
[2025-05-13] MEDS: ROBITUSSIN DM 10 ML PO (20:50)
[2025-05-13] MEDS: DESYREL 50 MG PO (20:50)
[2025-05-13] MEDS: SENOKOT 17.2 MG PO (20:51)
[2025-05-13 22:18] LABS: Glucose - Point of Care 199 mg/dl (70-99)
[2025-05-13 23:47] VITALS: BP 108/71
[2025-05-14] MEDS: CARAFATE SUSPENSION 1 GM PO ×4 (00:47→17:52)
[2025-05-14] MEDS: UNASYN IV ×4 (00:47→17:52)
[2025-05-14 03:08] VITALS: BMI 27.8
[2025-05-14 06:24] LABS: Glucose - Point of Care 154 mg/dl (70-99)
[2025-05-14 08:02] VITALS: BP 133/73
[2025-05-14 08:15] LABS: Hematocrit 32.9 % (39.0-52.0); Hemoglobin 11.3 g/dL (13.0-18.0); Mean Corp Hgb Conc. 34.3 g/dL (33.0-37.0); Mean Corpuscular Volume 89.6 fL (80.0-94.0); Platelet Count 344 10^3/uL (130-400); Red Cell Dist. Width 14.6 % (11.5-14.5)
[2025-05-14 08:24] LABS: ALT (SGPT) 191 U/L (0-50); AST (SGOT) 186 U/L (17-59); Albumin 3.2 g/dl (3.5-5.0); Alkaline Phosphatase 1167 U/L (38-126); Blood Urea Nitrogen 5 mg/dl (9-20); Calcium 8.7 mg/dl (8.4-10.2); Carbon Dioxide 24 mmol/L (22-30); Chloride 104 mmol/L (98-107); Estimated Creatinine Clearance 75 ml/min; Glucose 151 mg/dl (70-99); Potassium 3.8 mmol/L (3.5-5.1); Sodium 135 mmol/L (135-145); Total Protein 6.1 g/dl (6.3-8.2); eGFR > 60.00
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
[2025-05-14] MEDS: NSS (PRESERVATIVE FREE) 10 ML IV ×2 (08:38→20:47)
[2025-05-14] MEDS: PROTONIX IV 40 MG IV ×2 (08:38→20:48)
[2025-05-14] MEDS: MIRALAX 17 GRAMS PO (08:39)
[2025-05-14] MEDS: AVAPRO 150 MG PO ×2 (08:39→20:48)
[2025-05-14] MEDS: PROSCAR 5 MG PO (08:39)
[2025-05-14] MEDS: NOVOLOG FLEXPEN-HIGH RESISTANCE SC ×2 (08:41→12:59)
[2025-05-14] MEDS: NORVASC 2.5 MG PO (08:41)
[2025-05-14] MEDS: LR 1000 IV (11:07)
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
[2025-05-14 12:32] LABS: Glucose - Point of Care 151 mg/dl (70-99)
[2025-05-14] MEDS: CARAFATE SUSPENSION PO (13:13)
[2025-05-14] MEDS: NOVOLOG FLEXPEN-HIGH RESISTANCE 2 UNITS SC (13:22)
--- NOTE | 2025-05-14 15:20 | W.PN.GI.CBS2 ---
Today's Communication / Plan
-
EUS tomorrow
Assessment / Plan
-
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 Westbrook, ? squamous cell CA of leg, HTN,
hyperlipidemia, martin's esophagus, Schatzki's ring, HH, IBS constipation, BPH, obesity, hearing loss, multiple joint surgeries, prior appe, brendan, insomnia, ED, diverticulosis with onset of nausea and vomiting. Pt was seen in GI office March
with increased GERD and optimization of regiment to Protonix 40mg BID and Famotidine 20mg BID along with adding Miralax daily with constipation. In review further with patient he admits to no feeling well for about 4 weeks. Initial GERD and
constipation then diarrhea after laxatives but also decreased appetite and 13 lbs wt loss. He also admits to persistent cough possible GERD related but also admits to recent work up with cardiology for severe . He admits to eating lunch 05/08
around 1:30PM but continued with dizziness and actually had a formed stool. He then vomited large amount around 4pm prompting ER eval. He also complaints of persistent LLQ pain and some bloating. Pt otherwise denies odynophagia, dysphagia,
hematemesis, blood or black in stools. On admission noted with WBC 18,900, hbg 11.2, Na 134, glucose 234, lactate 3, bili 1.4, AST 85, ALT 106, alk phos 827 and lipase 313. Pt on daily ASA no other NSAIDs or anticoagulation.+ family hx mother
with pancreatic CA.
05/08/25 CT with Iv contrast s/p brendan diffuse intrahepatic bile duct dilatation with dilation of common hepatic duct at junction of CBD with abrupt change in caliber with mass in pancreatic head with concern for pancreatic carcinoma with involvement
of second portion of duodenum with obstruction of duodenum with dilation of stomach, dilation of fluid filled distal esophagus and fluid filled HH. There is also mild rotation within SMV to superior aspect of SMA no encasement of SMA or SMV and
noted prominent lymph nodes. liver lesion likely cyst and liver hemagioma. Mild rotation of colon left side abdomen. Pt on daily ASA no other NSAIDs or anticoagulation.+ family hx mother with pancreatic CA.
S/p EUS which showed 41 x 35 mm mass in the head of pancreas with abutment of PV. CBD was dilated up to 17 mm. There was also severe deformity/stenosis in the duodenal sweep. Given his GOO, enteral stent (duodenal 22 mm x 6 cm) was placed under
fluoroscopy guidance. ERCP was attempted however failed due to inability to locate the ampulla. Patient tolerated puree diet over the weekend. His LFT is increasing and repeat CT showed dilation of bile duct confirming anticipated biliary
obstruction. I had discussion with Dr. Cornel marroquin [email or web address] and he thought choledochoduodenostomy stent will be acceptable if needed. Discussed with the patient that he will need biliary drainage and explored 2 options which included PTBD versus EUS
guided choledochoduodenostomy stent placement. Pt preferred endoscopic option. Will plan on EUS guided choledochoduodenostomy stent placement if adequate window is found.
Total Time Spent with Patient (in minutes): 35
Subjective
Subjective
Date of Service: May 14, 2025
Denies vomiting, abdominal pain
Objective
Data Reviewed
Laboratory Data:
Laboratory Results
05/14/25 07:46
05/14/25 07:46
Laboratory Results
PT 15.8 Sec (11.4-14.6) H 05/10/25 07:28
INR 1.28 05/10/25 07:28
Magnesium 1.9 mg/dl (1.6-2.3) 05/11/25 08:26
Total Bilirubin 6.9 mg/dl (0.2-1.3) H 05/14/25 07:46
AST 186 U/L (17-59) H 05/14/25 07:46
ALT 191 U/L (0-50) H 05/14/25 07:46
Alkaline Phosphatase 1167 U/L (38-126) H 05/14/25 07:46
Lipase 387 U/L (23-300) H 05/11/25 08:26
Vital Signs and I&O:
Vital Signs
Temp Pulse Resp BP Pulse Ox
97.8 F 78 16 133/73 96
05/14/25 08:02 05/14/25 08:41 05/14/25 08:02 05/14/25 08:41 05/14/25 09:18
I&O
05/13/25 05/14/25 05/15/25
06:59 06:59 06:59
Intake Total 890 / 890 660 / 660
Output Total 350 / 350
Balance 540 / 540 660 / 660
[2025-05-14 15:30] VITALS: BP 138/79
--- NOTE | 2025-05-14 15:57 | W.PN.ONC2 ---
Today's Communication / Plan
-
.
Impression
Impression
pancreatic head mass with associated involvement of hepatic flexure and duodenum and mild lymphadenopathy
severe intrahepatic biliary dilation
GOO s/p enteral stent. Unable to complete ERCP d/t inability to locate ampulla
Ca 19.9 is 97
stomach biopsy pathology fundic gland polyp, FNA pancreatic mass pathology pending
elevated bili/transaminitis
Bcx Ecoli
cholangitis
History of CLL
Plan
Plan
f/u CEA
endoscopic ultrasound, choledochoduodenostomy stent planning underway with Dr. Wali Unger
abx per ID
trend LFTs
Subjective/Objective
Subjective
afebrile, no hypoxia or hypotension
denies sob, pain, or bleeding
using miralax, senna for bowels
Vital Signs:
Vital Signs
Temp Pulse Resp BP Pulse Ox
97.7 F 71 16 138/79 97
05/14/25 15:30 05/14/25 15:30 05/14/25 15:30 05/14/25 15:30 05/14/25 15:30
Lab Results:
Laboratory Data
WBC 17.9 10^3/uL (4.8-10.8) H 05/14/25 07:46
Hgb 11.3 g/dL (13.0-18.0) L 05/14/25 07:46
Plt Count 344 10^3/uL (130-400) D 05/14/25 07:46
PT 15.8 Sec (11.4-14.6) H 05/10/25 07:28
INR 1.28 05/10/25 07:28
eGFR > 60.00 05/14/25 07:46
Physical Exam
HEENT: Jaundice
Pulmonary: Other (unlabored)
GI: Soft
Extremities: Pulses Present
--- NOTE | 2025-05-14 16:16 | CM ---
CM reviewed chart- ADC>48 hours
Pt planned for EUS with GI tomorrow
Will follow for post procedure needs
Previous referral was made to [facility] and pt accepted for service
Discharge Disposition- anticipate home with [facility]
[2025-05-14 17:18] LABS: Glucose - Point of Care 280 mg/dl (70-99)
[2025-05-14] MEDS: NOVOLOG FLEXPEN-LOW RESISTANCE 3 UNITS SC (17:45)
[2025-05-14] MEDS: LOVENOX 40 MG SC (17:52)
[2025-05-14] MEDS: TOPROL XL 12.5 MG PO (17:52)
[2025-05-14] MEDS: ROBITUSSIN DM 10 ML PO (20:48)
[2025-05-14] MEDS: DESYREL 50 MG PO (21:35)
[2025-05-14] MEDS: SENOKOT 17.2 MG PO (21:35)
[2025-05-14 23:26] VITALS: BP 131/65
[2025-05-14 23:37] LABS: Glucose - Point of Care 222 mg/dl (70-99)
[2025-05-15] VITALS (10 sets, daily range): BP systolic 139–156; BP diastolic 74–89; BMI 27.8
[2025-05-15] MEDS: CARAFATE SUSPENSION 1 GM PO ×4 (00:21→17:14)
[2025-05-15] MEDS: UNASYN IV ×4 (00:21→17:12)
[2025-05-15 06:31] LABS: Glucose - Point of Care 152 mg/dl (70-99)
[2025-05-15 07:31] LABS: Hematocrit 30.1 % (39.0-52.0); Hemoglobin 10.1 g/dL (13.0-18.0); Mean Corp Hgb Conc. 33.6 g/dL (33.0-37.0); Mean Corpuscular Volume 89.9 fL (80.0-94.0); Nucleated Red Blood Cells % 0 % (-); Platelet Count 296 10^3/uL (130-400); Red Cell Dist. Width 15.1 % (11.5-14.5)
[2025-05-15 07:49] LABS: ALT (SGPT) 155 U/L (0-50); AST (SGOT) 145 U/L (17-59); Albumin 2.8 g/dl (3.5-5.0); Alkaline Phosphatase 1073 U/L (38-126); Blood Urea Nitrogen 4 mg/dl (9-20); Calcium 8.3 mg/dl (8.4-10.2); Carbon Dioxide 26 mmol/L (22-30); Chloride 106 mmol/L (98-107); Estimated Creatinine Clearance 75 ml/min; Glucose 143 mg/dl (70-99); Magnesium 1.8 mg/dl (1.6-2.3); Potassium 3.5 mmol/L (3.5-5.1); Sodium 136 mmol/L (135-145); Total Protein 5.5 g/dl (6.3-8.2); eGFR > 60.00
[2025-05-15] MEDS: NOVOLOG FLEXPEN-LOW RESISTANCE SC ×3 (08:30→17:14)
[2025-05-15] MEDS: MIRALAX PO (09:54)
[2025-05-15] MEDS: PROSCAR 5 MG PO (09:55)
[2025-05-15] MEDS: AVAPRO 150 MG PO ×2 (09:55→20:26)
[2025-05-15] MEDS: NORVASC 2.5 MG PO (09:56)
[2025-05-15] MEDS: NSS (PRESERVATIVE FREE) 10 ML IV ×2 (09:56→20:26)
[2025-05-15] MEDS: PROTONIX IV 40 MG IV ×2 (09:56→20:26)
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
[2025-05-15] MEDS: LR 1000 IV (11:14)
[2025-05-15] MEDS: KCL 270 MEQ IV (11:14)
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
[2025-05-15 12:05] LABS: Glucose - Point of Care 152 mg/dl (70-99)
--- NOTE | 2025-05-15 15:18 | CM ---
Addendum entered by Marva Jenkins 05/15/25 15:24:
[facility] referral previously forwarded.
Original Note:
Pancreatic head mass/hepatic flexure and duodenum involvement. s/p enteral stent. Stomach biopsy. IV/Unasyn. Discharge POC: TBD.
[2025-05-15 15:42] LABS: Glucose - Point of Care 146 mg/dl (70-99)
[2025-05-15] MEDS: TOPROL XL 12.5 MG PO (17:14)
[2025-05-15 17:21] LABS: Glucose - Point of Care 168 mg/dl (70-99)
[2025-05-15] MEDS: ROBITUSSIN DM 10 ML PO (21:59)
[2025-05-15] MEDS: DESYREL 50 MG PO (21:59)
[2025-05-15] MEDS: SENOKOT PO (21:59)
[2025-05-16] MEDS: UNASYN IV ×5 (00:13→23:36)
[2025-05-16] MEDS: CARAFATE SUSPENSION 1 GM PO ×5 (00:13→23:37)
[2025-05-16 03:30] VITALS: BP 131/61
[2025-05-16 06:32] VITALS: BMI 27.5
[2025-05-16] MEDS: MIRALAX 17 GRAMS PO (07:46)
[2025-05-16] MEDS: PROSCAR 5 MG PO (07:46)
[2025-05-16] MEDS: NSS (PRESERVATIVE FREE) 10 ML IV ×2 (07:47→20:03)
[2025-05-16] MEDS: PROTONIX IV 40 MG IV ×2 (07:47→20:03)
[2025-05-16 07:50] VITALS: BP 123/75
[2025-05-16 07:50] LABS: Glucose - Point of Care 222 mg/dl (70-99)
[2025-05-16] MEDS: AVAPRO 150 MG PO ×2 (07:56→20:03)
[2025-05-16] MEDS: NORVASC 2.5 MG PO (07:56)
[2025-05-16] MEDS: NOVOLOG FLEXPEN-LOW RESISTANCE 2 UNITS SC ×2 (07:57→17:41)
[2025-05-16 09:16] LABS: Hematocrit 34.4 % (39.0-52.0); Hemoglobin 11.7 g/dL (13.0-18.0); Mean Corp Hgb Conc. 34.0 g/dL (33.0-37.0); Mean Corpuscular Volume 90.3 fL (80.0-94.0); Platelet Count 412 10^3/uL (130-400); Red Cell Dist. Width 15.8 % (11.5-14.5)
--- NOTE | 2025-05-16 09:43 | W.PN.ONC2 ---
Today's Communication / Plan
-
Once GI status optimized by GI...okay for patient to be discharged and F/U Dr. Westbrook to start chemo planning for neoadjuvant therapy. Office notified to coordinate.
Impression
Impression
pancreatic adenocarcinoma with associated involvement of hepatic flexure and duodenum and mild lymphadenopathy
severe intrahepatic biliary dilation
GOO s/p enteral stent. Unable to complete ERCP d/t inability to locate ampulla
Ca 19.9 is 97
History of CLL
Plan
Plan
Pancreatic Ca confirmed. Will need neoadjuvant chemotherapy followed by surgery ([facility]).
Optimize GOO (duodenal stent 05/10) and biliary obstruction s/p EUS stent 05/15
Awaiting F/u bilirubin
Subjective/Objective
Chief Complaint
ACS Oncology
Subjective
Doing okay
Vital Signs:
Vital Signs
Temp Pulse Resp BP Pulse Ox
97.5 F 96 18 123/75 97
05/16/25 07:50 05/16/25 07:56 05/16/25 07:50 05/16/25 07:56 05/16/25 07:50
Lab Results:
Laboratory Data
WBC 29.2 10^3/uL (4.8-10.8) H 05/16/25 08:05
Hgb 11.7 g/dL (13.0-18.0) L 05/16/25 08:05
Plt Count 412 10^3/uL (130-400) H D 05/16/25 08:05
PT 15.8 Sec (11.4-14.6) H 05/10/25 07:28
INR 1.28 05/10/25 07:28
eGFR > 60.00 05/15/25 06:52
Physical Exam
HEENT: No Jaundice
Cardiology: S1 and S2
Pulmonary: Clear
[2025-05-16 10:19] LABS: ALT (SGPT) 136 U/L (0-50); AST (SGOT) 92 U/L (17-59); Albumin 3.3 g/dl (3.5-5.0); Alkaline Phosphatase 1194 U/L (38-126); Blood Urea Nitrogen 8 mg/dl (9-20); Calcium 8.8 mg/dl (8.4-10.2); Carbon Dioxide 20 mmol/L (22-30); Chloride 103 mmol/L (98-107); Estimated Creatinine Clearance 75 ml/min; Glucose 228 mg/dl (70-99); Magnesium 1.7 mg/dl (1.6-2.3); Potassium 4.1 mmol/L (3.5-5.1); Sodium 135 mmol/L (135-145); Total Protein 6.4 g/dl (6.3-8.2); eGFR > 60.00
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
[2025-05-16 11:00] VITALS: BP 140/69
[2025-05-16 12:13] LABS: Glucose - Point of Care 265 mg/dl (70-99)
[2025-05-16] MEDS: NOVOLOG FLEXPEN-LOW RESISTANCE 3 UNITS SC (12:42)
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
--- NOTE | 2025-05-16 14:13 | W.PN.GI.CBS2 ---
Addendum entered and electronically signed by Tevin Hobbs MD 05/16/25 15:05:
I saw and examined the patient.
The DIAM[employer] DRILLER or PA's note was reviewed and I agree with the note.
Comment: Tolerating puree diet. Denies abd pain
WBC up to 29 (hx CLL, but Ecoli bacteremia 05/09. Transition to Augmentin tomorrow per ID)
LFTs improved. TBil 6.5 --> 3.6 s/p EUS-guided LAMS placement to allow ERCP/plastic stent into L hepatic duct draining bile/pus.
Advance diet to low residue. Reviewed enteral stent diet with pt. Avoid raw fruits/vegetables/fibrous material
F/U with Dr Phan already arranged in May
Original Note:
Today's Communication / Plan
-
pt doing well post procedure
tolerating pureed diet, will advance to low residue and reviewed again stent restriction
some rise in WBC but some chronic elevation with CLL but also noted Ecoli bacteremia
ID following for abx
LFT's with some improvement but still some rise in alk phos for repeat in AM
pt is scheduled May follow up with Dr. Phan 06/[address] Hernandez 08/03
cont PPI BID ( can wean to daily on discharge ) and carafate(can wean down on discharge over next 2 weeks)
cont miralax and senna
family updated, all questions answered
Assessment / Plan
-
Pt is an 84yo with hx non obstructive CAD, severe with current work up, NIDDM, GERD with recent worsening symptoms , CLL and non hodgkin's lymphoma of small bowel with assisted follow with Dr. Westbrook, ? squamous cell CA of leg, HTN,
hyperlipidemia, martin's esophagus, Schatzki's ring, HH, IBS constipation, BPH, obesity, hearing loss, multiple joint surgeries, prior appe, brendan, insomnia, ED, diverticulosis and recent work up for severe with onset of nausea and vomiting
with no improvement with PPI and famotidine. On admission concern for pancreatic mass on CT. 05/08 S/p EUS with biopsy and duodenal stent for stenosis and failed ERCP. Pt returned 05/15 for repeat EUS/ERCP with LAMS stent with
Choledochoduodenostomy fistula tract was successfully dilated and One plastic stent was placed into the left hepatic duct. + ecoli bactermia noted during admission.
-new diagnosis pancreatic adeno CA 05/08 ERCP failed then 05/15 for repeat EUS/ERCP with LAMS stent with Choledochoduodenostomy fistula tract was successfully dilated and One plastic stent was placed into the left hepatic duct.
-duodenal obstruction with duodenal stent placement 05/08
-increased LFT's
-hx severe with current work up with cardiology and noted murmur on exam
-LLQ pain with mild distention on exam
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 Westbrook
-Ecoli bactermia
-leukocytosis
-anemia
PLAN:
pt doing well post procedure
tolerating pureed diet, will advance to low residue and reviewed again stent restriction
some rise in WBC but some chronic elevation with CLL but also noted Ecoli bacteremia
ID following for abx
LFT's with some improvement but still some rise in alk phos for repeat in AM
pt is scheduled May follow up with Dr. Phan 06/[address] Hernandez 08/03
cont PPI BID ( can wean to daily on discharge ) and carafate(can wean down on discharge over next 2 weeks)
cont miralax and senna
family updated, all questions answered
Subjective
Subjective
Date of Service: May 16, 2025
05/15 brown stool and possible other stool overnight on pureed diet and tolerating , feeling well no complaints
Objective
Data Reviewed
Laboratory Data:
Laboratory Results
05/16/25 08:05
05/16/25 08:05
Laboratory Results
PT 15.8 Sec (11.4-14.6) H 05/10/25 07:28
INR 1.28 05/10/25 07:28
Magnesium 1.7 mg/dl (1.6-2.3) 05/16/25 08:05
Total Bilirubin 3.6 mg/dl (0.2-1.3) H 05/16/25 08:05
AST 92 U/L (17-59) H 05/16/25 08:05
ALT 136 U/L (0-50) H 05/16/25 08:05
Alkaline Phosphatase 1194 U/L (38-126) H 05/16/25 08:05
Lipase 387 U/L (23-300) H 05/11/25 08:26
Vital Signs and I&O:
Vital Signs
Temp Pulse Resp BP Pulse Ox
97.3 F 66 20 140/69 96
05/16/25 11:00 05/16/25 11:00 05/16/25 11:00 05/16/25 11:00 05/16/25 11:00
I&O
05/15/25 05/16/25 05/17/25
06:59 06:59 06:59
Intake Total 360 / 360 1080 / 1080
Output Total 1100 / 1100
Balance 360 / 360 -20 / -20
Physical Exam
Physical Exam
HEENT: Other (jaundice )
Cardiology: Normal Sinus Rhythm and Murmur
Pulmonary: Clear
GI: Soft, Distended (mild ) and Non Tender
Neuro: Non Focal
[2025-05-16 15:50] VITALS: BP 118/70
--- NOTE | 2025-05-16 17:27 | CM ---
Monitor LFT's, WBC 29, IV/Unasyn, Advance diet from pureed to low residue., F/U outpatient Oncology. Discharge POC: Anticipate home with no needs. Observe for HH needs.
[2025-05-16 17:31] LABS: Glucose - Point of Care 227 mg/dl (70-99)
[2025-05-16] MEDS: TOPROL XL 12.5 MG PO (17:40)
[2025-05-16 21:24] LABS: Glucose - Point of Care 252 mg/dl (70-99)
[2025-05-16] MEDS: ROBITUSSIN DM 10 ML PO (21:48)
[2025-05-16] MEDS: DESYREL 50 MG PO (21:48)
[2025-05-16] MEDS: SENOKOT 17.2 MG PO (21:48)
[2025-05-16 23:17] VITALS: BP 132/68
[2025-05-17] MEDS: CARAFATE SUSPENSION 1 GM PO ×2 (05:44→12:13)
[2025-05-17 05:48] VITALS: BMI 27.5
[2025-05-17 08:10] LABS: Glucose - Point of Care 142 mg/dl (70-99)
--- NOTE | 2025-05-17 08:11 | W.PN.ONC2 ---
Today's Communication / Plan
-
discharge planning - my office will reach out to schedule with pt
Impression
Impression
pancreatic adenocarcinoma with associated involvement of hepatic flexure and duodenum and mild lymphadenopathy
GOO s/p enteral stent 05/10, and biliary obstruction s/p EUS stent 05/15 now with improving LFTs
Ecoli bacteremia
History of CLL
Plan
Plan
Will need neoadjuvant chemotherapy followed by surgery ([facility])
abx per ID
Subjective/Objective
Subjective
last fever 05/09, no hypotension or hypoxia
using guaifenesin/dextromethorphan for cough
using miralax, senna prn constipation
Vital Signs:
Vital Signs
Temp Pulse Resp BP Pulse Ox
97.7 F 60 20 132/68 99
05/16/25 23:17 05/16/25 23:17 05/16/25 23:17 05/16/25 23:17 05/16/25 23:17
Lab Results:
Laboratory Data
WBC 29.2 10^3/uL (4.8-10.8) H 05/16/25 08:05
Hgb 11.7 g/dL (13.0-18.0) L 05/16/25 08:05
Plt Count 412 10^3/uL (130-400) H D 05/16/25 08:05
PT 15.8 Sec (11.4-14.6) H 05/10/25 07:28
INR 1.28 05/10/25 07:28
eGFR > 60.00 05/16/25 08:05
Physical Exam
HEENT: Jaundice improving
Pulmonary:unlabored
GI: Soft
Extremities: Pulses Present
[2025-05-17] MEDS: NOVOLOG FLEXPEN-LOW RESISTANCE SC (08:41)
[2025-05-17] MEDS: AVAPRO 150 MG PO (08:42)
[2025-05-17] MEDS: MIRALAX 17 GRAMS PO (08:42)
[2025-05-17] MEDS: AUGMENTIN 875 MG/125 MG 1 TABLET PO (08:43)
[2025-05-17] MEDS: PROSCAR 5 MG PO (08:43)
[2025-05-17] MEDS: NORVASC 2.5 MG PO (08:43)
[2025-05-17] MEDS: PROTONIX IV 40 MG IV (08:43)
[2025-05-17] MEDS: NSS (PRESERVATIVE FREE) 10 ML IV (08:43)
[2025-05-17 08:44] VITALS: BP 129/77
[2025-05-17 08:59] LABS: Hematocrit 33.0 % (39.0-52.0); Hemoglobin 11.0 g/dL (13.0-18.0); Mean Corp Hgb Conc. 33.3 g/dL (33.0-37.0); Mean Corpuscular Volume 90.4 fL (80.0-94.0); Platelet Count 383 10^3/uL (130-400); Red Cell Dist. Width 15.7 % (11.5-14.5)
[2025-05-17 09:32] LABS: ALT (SGPT) 118 U/L (0-50); AST (SGOT) 70 U/L (17-59); Albumin 3.4 g/dl (3.5-5.0); Alkaline Phosphatase 970 U/L (38-126); Blood Urea Nitrogen 9 mg/dl (9-20); Calcium 8.8 mg/dl (8.4-10.2); Carbon Dioxide 23 mmol/L (22-30); Chloride 105 mmol/L (98-107); Estimated Creatinine Clearance 75 ml/min; Glucose 137 mg/dl (70-99); Potassium 3.9 mmol/L (3.5-5.1); Sodium 137 mmol/L (135-145); Total Protein 6.3 g/dl (6.3-8.2); eGFR > 60.00
[2025-05-17 09:37] LABS: Nucleated Red Blood Cells % 0 % (-)
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
[2025-05-17 12:13] LABS: Glucose - Point of Care 185 mg/dl (70-99)
[2025-05-17] MEDS: NOVOLOG FLEXPEN-LOW RESISTANCE 1 UNITS SC (12:14)
--- NOTE | 2025-05-17 12:59 | CM ---
Addendum entered by Zahra Miller 05/17/25 15:22:
IMM benefit explained; form signed
Addendum entered by Zahra Miller 05/17/25 13:10:
Patient reported that one of his friends will be here around 3 PM to provide transport home. Son notified
Addendum entered by Zahra Miller 05/17/25 13:02:
Spoke with patient's son, Cal, via phone # [phone]. He reported that he is [place] a [place] but will be here by 4-5 PM today to transport his father home
Plan: Discharge to home; no needs
Original Note:
Per PT, No home care or SNF recommended; patient ambulating w/ cane well; patient declined home health
[2025-05-17 14:53] VITALS: BP 130/72
== END 2025-05-17 15:18 | disposition home or self-care (01) | DRG 853 ==
LOC: 2 NORTH 22:22
PROVIDERS: Internal Medicine Gastroenterology; Nurse Practitioner Adult Health; Nurse Practitioner Family; Physician Assistant Medical; Radiology Diagnostic Radiology; Radiology Vascular & Interventional Radiology; Student in an Organized Health Care Education/Training Program; Surgery Trauma Surgery; ADMITTING PHYSICIAN Internal Medicine; ATTENDING PHYSICIAN General Practice; CONSULT PHYSICIAN Internal Medicine Cardiovascular Disease; CONSULT PHYSICIAN Internal Medicine Gastroenterology; CONSULT PHYSICIAN Surgery; EMERGENCY PHYSICIAN Emergency Medicine; FAMILY PHYSICIAN Internal Medicine; OTHER PHYSICIAN Internal Medicine Hematology & Oncology; OTHER PHYSICIAN Internal Medicine Infectious Disease
PROC: 0FJB8ZZ Inspection of Hepatobiliary Duct, Via Natural or Artificial Opening Endoscopic (ICD-10-PCS; 2025-05-10)
PROC: 0F9G8ZX Drainage of Pancreas, Via Natural or Artificial Opening Endoscopic, Diagnostic (ICD-10-PCS; 2025-05-10)
PROC: 0D798DZ Dilation of Duodenum with Intraluminal Device, Via Natural or Artificial Opening Endoscopic (ICD-10-PCS; 2025-05-10)
PROC: 0D968ZZ Drainage of Stomach, Via Natural or Artificial Opening Endoscopic (ICD-10-PCS; 2025-05-10)
PROC: BD19YZZ Fluoroscopy of Duodenum using Other Contrast (ICD-10-PCS; 2025-05-10)
PROC: 0DB68ZX Excision of Stomach, Via Natural or Artificial Opening Endoscopic, Diagnostic (ICD-10-PCS; 2025-05-10)
PROC: 0F1 Hepatobiliary System and Pancreas, Bypass (ICD-10-PCS; 2025-05-15)
PROC: 0F768DZ Dilation of Left Hepatic Duct with Intraluminal Device, Via Natural or Artificial Opening Endoscopic (ICD-10-PCS; 2025-05-15)
PROC: BF111ZZ Fluoroscopy of Biliary and Pancreatic Ducts using Low Osmolar Contrast (ICD-10-PCS; 2025-05-15)
DX: A41.51 Sepsis due to Escherichia coli [E. coli] (principal); K83.1 Obstruction of bile duct; C25.0 Malignant neoplasm of head of pancreas; C77.2 Secondary and unspecified malignant neoplasm of intra-abdominal lymph nodes; C91.10 Chronic lymphocytic leukemia of B-cell type not having achieved remission; E87.20 Acidosis, unspecified; K31.5 Obstruction of duodenum; E87.1 Hypo-osmolality and hyponatremia; K31.1 Adult hypertrophic pyloric stenosis; K83.09 Other cholangitis; R17 Unspecified jaundice; R65.20 Severe sepsis without septic shock; E78.00 Pure hypercholesterolemia, unspecified; I10 Essential (primary) hypertension; K21.9 Gastro-esophageal reflux disease without esophagitis; I27.20 Pulmonary hypertension, unspecified; H91.91 Unspecified hearing loss, right ear; K58.1 Irritable bowel syndrome with constipation; I35.0 Nonrheumatic aortic (valve) stenosis; E11.649 Type 2 diabetes mellitus with hypoglycemia without coma; I25.10 Atherosclerotic heart disease of native coronary artery without angina pectoris; N40.0 Benign prostatic hyperplasia without lower urinary tract symptoms; G47.00 Insomnia, unspecified; K31.7 Polyp of stomach and duodenum; G51.0 Bell's palsy; E66.9 Obesity, unspecified; Z96.611 Presence of right artificial shoulder joint; Z96.653 Presence of artificial knee joint, bilateral; Z68.27 Body mass index [BMI] 27.0-27.9, adult; Z11.52 Encounter for screening for COVID-19; Z80.0 Family history of malignant neoplasm of digestive organs; Z82.3 Family history of stroke; Z80.7 Family history of other malignant neoplasms of lymphoid, hematopoietic and related tissues; Z88.8 Allergy status to other drugs, medicaments and biological substances; Z91.013 Allergy to seafood; Z79.84 Long term (current) use of oral hypoglycemic drugs; Z79.82 Long term (current) use of aspirin; Z79.1 Long term (current) use of non-steroidal anti-inflammatories (NSAID); Z85.828 Personal history of other malignant neoplasm of skin; Z87.19 Personal history of other diseases of the digestive system; Z86.0100 Personal history of colon polyps, unspecified; Z90.49 Acquired absence of other specified parts of digestive tract
CPT/HCPCS: 71045; 74174; 74177; 74183; 74330; 76000; 80048; 80053; 81003; 81015; 82378; 82962; 83036; 83605; 83690; 83735; 83880; 84484; 85025; 85027; 85610; 86301; 87040; 87077; 87154; 87186; 87205; 87502; 87811; 88172; 88173; 88305; 93005; 96374; 97116; 97163; 99285; A9575; C1726; C1769; C1874; C1876; C2617; Q9967